=== PATIENT | female | born 1975 | race African-American/Black ===

== ENCOUNTER 2021-07-05 22:06 | Inpatient (IN) | payer BC ==
--- OUTSIDE RECORDS SUMMARY | 2021-07-05 22:09 | XMS REPORT | Continuity of Care Document ---
:1975 Author Organization [facility] t Address [address] [place] [address] Care Team Providers Name Role Phone KATJA MALLOY Primary Care Physician Unavailable RONDA COURTNEY Attending Clinician Unavailable Celeste Roman MD Attending Clinician Celeste ROMAN Attending Clinician Unavailable Payers Payer Name Policy Type Policy Number Effective Date Expiration Date S terrance [facility] [id number] 2016 00:00:00 Problems Condition Condition Condition Status Onset Resolution Last Treating Co mments Source Name Details Category Date Date Treatment Clinician Date Troponin I Troponin I Disease Active U nivers above above 2-11 [place] range 00 [place] Acute on Acute on Disease Active Unive rs chronic chronic 2-11 ity of diastolic diastolic 00:00: [place] (congestiv (congestiv 00 Me dical e) heart e) heart Branch failure failure Morbid Morbid Disease Active Univers obesity obesity 2-10 [place] of with body with body 00:[place] mass index mass index 00 Me dical of of Branch 40.0-49.9 40.0-49.9 Acute on Acute on Disease Active Unive rs chronic chronic 2-10 ity of combined combined 00:00: [place] systolic systolic 00 Medica l and and Branch diastolic diastolic congestive congestive heart heart failure failure Elevated Elevated Disease Active 2018-05 Unive rs LFTs LFTs - ity of 00:00: [place] 00 Medical Branch Bilious Bilious Disease Active 2018-05 Univers vomiting vomiting - ity of with with 00:00: [place] nausea nausea 00 Medical Branch Other Other Disease Active 2018-05 Univers constipati constipati 05-10 it y of on on 00:00: [place] 00 [facility] Branch Abnormal Abnormal Disease Active 2018-[address] of the CT of the 05-10 ity of abdomen abdomen 00:00: [place] 00 Medical Branch Hepatomega Hepatomega Disease Active 2018-05 U nivers ly ly 05-10 ity of 00:00: [place] 00 Medical Branch 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 surgery surgery Branch Diabetes Diabetes Disease Active Unive rs mellitus mellitus 05-10 ity of 00:00: [place] 00 [facility] HTN HTN Disease Active Univers (hypertens (hypertens it y of ion) ion) [facility] Allergies, Adverse Reactions, Alerts Allergy Allergy Status Severity Reaction(s) Onset Inactive Treating Comm ents Source Name Type Date Date Clinician NO KNOWN Drug Active Univers ALLERGIE Class ity of S [facility] Social History Social Habit Start Date Stop Date Quantity Comments Source Exposure to Not sure [facility] SARS-CoV-2 [facility] [place] [facility] (event) [place] Alcohol intake 2021-05-27 2021-05-27 Ex-drinker University of 00:00:00 00:00:00 (finding) [facility] Tobacco use and 2019-02-09 2019-02-09 Never used Universit y of exposure 00:00:00 00:00:00 [facility] History of 2019-02-07 Smoker University of tobacco use 00:00:00 [facility] Sex [birth year] Universit y of 00:00:00 00:00:00 [facility] Smoking Status Start Date Stop Date Source Former smoker 2019-02-09 00:00:00 2019-02-09 00:00:00 Universi ty of [facility] Medications Ordered Filled Start Stop Current Ordering Indication Dosage Frequency Signature Comments Components Source Medication Medication Date Date Medication? Clinician (SIG) Name Name magnesium 2020-05 Yes [id number] 400mg Take 400 Univers oxide 400 0-07 mg by ity of mg 00:00: mouth at [place] magnesium 00 bedtime. Medica l Tab Branch magnesium 2020-05 Yes [id number] 400mg Take 400 Univers oxide 400 0-07 mg by ity of mg 00:00: mouth at [place] magnesium 00 bedtime. Medica l Tab Branch spironolact 2020-05 Yes [id number] 12.5mg Take 0.5 Univers one 25 mg 0-05 9100 tablets by ity of tablet 00:00: mouth [place] 00 daily. Medical Branch atorvastati 2020-05 Yes [id number] 40mg Take 1 Univers n 40 mg 0-05 tablet by ity of tablet 00:00: mouth at [place] 00 bedtime. Medical Branch enalapril 2020-05 Yes [id number] TAKE 1 Univers 2.5 mg 0-05 9100 TABLET BY ity of tablet 00:00: MOUTH [place] 00 EVERY DAY Medical Branch calcitrioL 2020-05 Yes [id number] .5ug Take 1 Univers 0.5 mcg 0-05 capsule by ity of capsule 00:00: mouth [place] 00 daily. Medical Branch bumetanide 2020-05 Yes [id number] 1mg Take 0.5 Univers 2 mg tablet 0-05 9100 tablets by it y of 00:00: mouth 2 [place] 00 (two) Medical times Branch daily. dapaglifloz 2020-05 Yes [id number] 10mg Take 1 Univers in 0-05 tablet by ity of (FARXIGA) 00:00: mouth [place] 10 mg 00 daily. Medical tablet Branch insulin NPH 2020-05 Yes [id number] 15U inject 15 Univers and regular 0-05 Units ity of human 70-30 00:00: [place] (NOVOLIN 00 skin every Medic al 70/30 U-100 morning Branc h INSULIN) and 100 unit/mL evening. (70-30) injection metformin 2020-05 Yes [id number] 1000mg Take 2 Univers ER 500 mg 0-05 tablets by ity of 24 hr 00:00: mouth 2 [place] tablet 00 (two) Medical times Branch daily. semaglutide 2020-05 Yes [id number] .5mg inject 0.5 Univers (OZEMPIC) 0-05 mg under ity of 0.25 mg or 00:00: the skin [place] 0.5 mg(2 00 weekly. Medical mg/1.5 mL) Branch PnIj spironolact 2020-05 Yes [id number] 12.5mg Take 0.5 Univers one 25 mg 0-05 9100 tablets by ity of tablet 00:00: mouth [place] 00 daily. Medical Branch atorvastati 2020-05 Yes [id number] 40mg Take 1 Univers n 40 mg 0-05 tablet by ity of tablet 00:00: mouth at [place] 00 bedtime. Medical Branch enalapril 2020-05 Yes [id number] TAKE 1 Univers 2.5 mg 0-05 9100 TABLET BY ity of tablet 00:00: MOUTH [place] 00 EVERY DAY Medical Branch calcitrioL 2020-05 Yes [id number] .5ug Take 1 Univers 0.5 mcg 0-05 capsule by ity of capsule 00:00: mouth [place] 00 daily. Medical Branch bumetanide 2020-05 Yes [id number] 1mg Take 0.5 Univers 2 mg tablet 0-05 9100 tablets by it y of 00:00: mouth 2 [place] 00 (two) Medical times Branch daily. dapaglifloz 2020-05 Yes [id number] 10mg Take 1 Univers in 0-05 tablet by ity of (FARXIGA) 00:00: mouth [place] 10 mg 00 daily. Medical tablet Branch insulin NPH 2020-05 Yes [id number] 15U inject 15 Univers and regular 0-05 Units ity of human 70-30 00:00: [place] (NOVOLIN 00 skin every Medic al 70/30 U-100 morning Branc h INSULIN) and 100 unit/mL evening. (70-30) injection metformin 2020-05 Yes [id number] 1000mg Take 2 Univers ER 500 mg 0-05 tablets by ity of 24 hr 00:00: mouth 2 [place] tablet 00 (two) Medical times Branch daily. semaglutide 2020-05 Yes [id number] .5mg inject 0.5 Univers (OZEMPIC) 0-05 mg under ity of 0.25 mg or 00:00: the skin [place] 0.5 mg(2 00 weekly. Medical mg/1.5 mL) Branch PnIj metoprolol Yes [id number] 25mg Take 1 Univers succinate 3-04 tablet by ity o f XL 25 mg 24 00:00: mouth 2 [place] hr tablet 00 (two) Medical times Branch daily. metoprolol Yes [id number] 25mg Take 1 Univers succinate 3-04 tablet by ity o f XL 25 mg 24 00:00: mouth 2 [place] hr tablet 00 (two) Medical times Branch daily. 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 Dx: Medic al PEN NEEDLE) E 11.69. Bran ch 31 gauge x Please 16" Ndle dispense the pen needles approved by Insurance. Insulin 2020-0 Yes Use as Univers [place], 6-23 directed ity of Disposable, 00:00: once a [place] (ADVOCATE week. Dx: Medic al PEN NEEDLE) E 11.69. Bran ch 31 gauge x Please 16" Ndle dispense the pen needles approved by Insurance. aspirin 81 2020-0 Yes [id number] 81mg Take 1 Univers mg chewable 5-06 tablet by ity of tablet 00:00: mouth [place] 00 daily with Medical breakfast. Branch aspirin 81 2020-0 Yes [id number] 81mg Take 1 Univers mg chewable 5-06 tablet by ity of tablet 00:00: mouth [place] 00 daily with Medical breakfast. Branch blood sugar 2020-0 Yes [id number] Use as Univers diagnostic 2-27 directed ity o f (ADVANCED 00:00: [place] GLUC METER 00 Medical TEST STRIP) Branch strip blood sugar 2019-0 Yes [id number] Use as Univers diagnostic 2-27 directed ity o f (ADVANCED 00:00: [place] GLUC METER 00 Medical TEST STRIP) Branch strip nystatin 2020-0 Yes [id number] Apply to Univers 100,000 1-15 area(s) 2 ity of unit/gram 00:00: (two) [place] powder 00 times Medical daily. Branch nystatin 2020-0 Yes [id number] Apply to Univers 100,000 1-15 area(s) 2 ity of unit/gram 00:00: (two) [place] powder 00 times Medical daily. Branch PROAIR HFA 2019-0 Yes [id number] INHALE 2 Univers 90 1-03 PUFFS ity of mcg/actuati 00:00: EVERY 6 [place] on inhaler 00 HOURS Medic al NEEDED FOR Branch WHEEZING AND SHORTNESS OF BREATH PROAIR HFA 2020-0 Yes [id number] INHALE 2 Univers 90 1-03 PUFFS ity of mcg/actuati 00:00: EVERY 6 [place] on inhaler 00 HOURS Medic al NEEDED FOR Branch WHEEZING AND SHORTNESS OF BREATH Polyethylen 2019- Yes [id number] 1{packe Take 1 Univers e Glycol 0-03 t} Packet by ity of 3350 00:00: mouth [place] (MIRALAX) 00 daily. Medical 17 gram Branch powder Polyethylen 2018- Yes [id number] 1{packe Take 1 Univers e Glycol 0-03 t} Packet by ity of 3350 00:00: mouth [place] (MIRALAX) 00 daily. Medical 17 gram Branch powder Immunizations Ordered Filled Immunization Date Status Comments [facility] e Immunization Name Name Influenza Virus 2021-05-27 Completed Universit y of Vaccine Quad IM, 00:00:00 [place] Me dical Preserv and ABX Branch Free 6 MO-64 YRS Influenza Virus 2021-05-27 Completed Universit y of Vaccine Quad IM, 00:00:00 [place] Me dical Preserv and ABX Branch Free 6 MO-64 YRS SARS-COV-2 COVID-19 2021-02-11 Completed Unive rsity of PFIZER VACCINE 00:00:00 [facility] SARS-COV-2 COVID-19 2021-02-11 Completed Unive rsity of PFIZER VACCINE 00:00:00 [facility] Branch Pneumococcal 13 2020-07-11 Completed Universit y of Conjugate, PCV13 00:00:00 [facility] dical (Prevnar 13) [place] Influenza Virus 2020-07-11 Completed Universit y of Vaccine Quad .5 mL 00:00:00 [facility] 6+ MO Branch Pneumococcal 13 2020-07-11 Completed Universit y of Conjugate, PCV13 00:00:00 [facility] dical (Prevnar 13) [place] Influenza Virus 2020-07-11 Completed Universit y of Vaccine Quad .5 mL 00:00:00 [facility] 6+ MO Branch SARS-COV-2 COVID-19 2020-06-10 Completed Unive rsity of PFIZER VACCINE 00:00:00 [facility] SARS-COV-2 COVID-19 2020-06-10 Completed Unive rsity of PFIZER VACCINE 00:00:00 [facility] SARS-COV-2 COVID-19 2020-05-20 Completed Unive rsity of PFIZER VACCINE 00:00:00 [facility] SARS-COV-2 COVID-19 2020-05-20 Completed Unive rsity of PFIZER VACCINE 00:00:00 [facility] Influenza Virus 2019-07-10 Completed Universit y of Vaccine Quad .5 mL 00:00:00 [facility] 6+ MO Branch Pneumococcal 13 2019-07-10 Completed Universit y of Conjugate, PCV13 00:00:00 [facility] dical (Prevnar 13) [place] Influenza Virus 2019-07-10 Completed Universit y of Vaccine Quad .5 mL 00:00:00 [facility] 6+ MO Branch Pneumococcal 13 2019-07-10 Completed Universit y of Conjugate, PCV13 00:00:00 [facility] dical (Prevnar 13) [place] Vital Signs Vital Name Observation Time Observation Value Comments Source Systolic blood 2021-05-27 15:19:00 131 mm[Hg] Univer sity of pressure [facility] Diastolic blood 2021-05-27 15:19:00 83 mm[Hg] Unive rsity of pressure [facility] Heart rate 2021-05-27 15:19:00 82 /min [facility] Body temperature 2021-05-27 14:40:00 36.56 Duyen [facility] Res[facility] 2021-05-27 14:40:00 18 /min [facility] Body height 2021-05-27 14:40:00 167.6 cm [facility] Body weight 2021-05-27 14:40:00 125.193 kg [facility] BMI 2021-05-27 14:40:00 44.55 kg/m2 [facility] Procedures Procedure Date / Time Performed Performing Clinician Sourc e FLU VACC ([id number]), 2021-05-27 14:57:50 Heidi Roman [facility] 2-64 YRS, .5ML, IM, Medical Bran ch QUAD (FLUCELVAX) Encounters Start End Encounter Admission Attending Care Care Encounter Source Date/Time Date/Time Type Type Clinicians Facility Department ID 2021-07-07 2021-07-07 Outpatient [facility] [id number] Univers 10:30:00 10:30:00 [id number] [facility] 2021-07-07 2021-07-07 Outpatient [facility] [id number] Univers 10:30:00 10:30:00 [facility] 2021-05-27 2021-05-27 [facility] [id number] Univers 08:30:00 09:16:00 Visit Heidi HAYWOOD [id number] [facility] [id number] [place] long PROFESSIO [phone] Nh dical NAL 134 [facility] 2021-05-27 2021-05-27 [id number] Univers 08:30:00 09:16:00 HEIDI chavira [facility] Results This patient has no known results.
[2021-07-05 23:17] LABS: Absolute Lymphocytes (CBC) 4.2 K/uL (0.7-4.9); Hematocrit 36.7 % (36.0-45.0); Lymphocytes % 23.4 % (15.3-44.8); RBC Red Blood Cell Count 4.25 M/uL (3.86-4.86)
[2021-07-05] MEDS ORDERED: FAMOTIDINE 20 MG/2 ML VIAL IV ONE (23:19)
[2021-07-05] MEDS ORDERED: NA CHLORIDE 0.9% 1,000 ML ONE (23:19)
[2021-07-05 23:23] LABS: Protime INR 1.03
[2021-07-05 23:53] LABS: SARS-COV-2 RT PCR NEGATIVE (NEGATIVE)
[2021-07-05 23:55] LABS: ALT/SGPT 17 U/L (12-78); AST/SGOT 9 U/L (15-37); Albumin 3.4 g/dL (3.4-5.0); Alkaline Phosphatase 66 U/L (45-117); BUN Blood Urea Nitrogen 16 mg/dL (7-18); Bicarbonate 25 mmol/L (21-32); Bilirubin Direct < 0.1 mg/dL (0-0.2); Bilirubin Total 0.2 mg/dL (0.2-1.0); Glucose Level 202 mg/dL (74-106); Lipase 71 U/L (73-393); Magnesium 1.9 mg/dL (1.8-2.4); NT PRO-BNP 1380 pg/mL (<125); Potassium 3.4 mmol/L (3.5-5.1); Sodium Level 138 mmol/L (136-145)
[2021-07-06] MEDS ORDERED: PROMETHAZINE INJ 25 MG/ML AMP ONE ×2 (00:16→08:52)
[2021-07-06] MEDS ORDERED: CEFTRIAXONE 1000 MG/VIAL ONE (02:52)
--- NOTE | 2021-07-06 03:33 | EDPHYS ---
Physician Documentation [facility] Name: Sharda Mckenzie Age: 46 yrs Sex: Female : 1975 Arrival Date: 07/05/2021 Time: 22:29 Bed 13 Private MD: ED Physician Cam Graff HPI: 07/05 23:25 This 46 yrs old Black Female presents to ER via Unassigned with complaints of [place]. mh7 Vomiting. 23:25 The patient presents to the emergency department with nausea, that is moderate, mh7 vomiting, that is intermittent, described as undigested food, diarrhea, that is intermittent. Onset: The symptoms/episode began/occurred just prior to arrival, today. Possible causes: bad food exposure, possibly bad restaurant food. The symptoms are aggravated by nothing. The symptoms are alleviated by nothing. Associated signs and symptoms: Pertinent negatives: abdominal pain, anorexia, belching, constipation, dysuria, fever, flatulence, GI bleeding, hematuria, vaginal discharge. Severity of symptoms: At their worst the symptoms were moderate today, in the emergency department the symptoms are unchanged. 23:25 Reports symptoms starting within a couple hours of eating food from multiple [facility] restaurants.. 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 - Social history:: Smoking status: unknown. ROS: 23:25 Constitutional: Negative for fever, chills, and weight loss, Eyes: Negative for injury, mh7 pain, redness, and discharge, ENT: Negative for injury, pain, and discharge, Neck: Negative for injury, pain, and swelling, Cardiovascular: Negative for chest pain, palpitations, and edema, Respiratory: Negative for shortness of breath, cough, wheezing, and pleuritic chest pain, Back: Negative for injury and pain, : Negative for injury, bleeding, discharge, and swelling, MS/Extremity: Negative for injury and deformity, Skin: Negative for injury, rash, and discoloration, Neuro: Negative for headache, weakness, numbness, tingling, and seizure, Psych: Negative for depression, anxiety, suicide ideation, homicidal ideation, and hallucinations, Allergy/Immunology: Negative for hives, rash, and allergies, Endocrine: Negative for neck swelling, polydipsia, polyuria, polyphagia, and marked weight changes, Hematologic/Lymphatic: Negative for swollen nodes, abnormal bleeding, and unusual bruising. Exam: 23:25 Head/Face: Normocephalic, atraumatic. Eyes: Pupils equal round and reactive to light, mh7 extra-ocular motions intact. Lids and lashes normal. Conjunctiva and sclera are non-icteric and not injected. Cornea within normal limits. Periorbital areas with no swelling, redness, or edema. Neck: Trachea midline, no thyromegaly or masses palpated, and no cervical lymphadenopathy. Supple, full range of motion without nuchal rigidity, or vertebral point tenderness. No Meningismus. Chest/axilla: Normal chest wall appearance and motion. Nontender with no deformity. No lesions are appreciated. Respiratory: Lungs have equal breath sounds bilaterally, clear to auscultation and percussion. No rales, rhonchi or wheezes noted. No increased work of breathing, no retractions or nasal flaring. Abdomen/GI: Soft, non-tender, with normal bowel sounds. No distension or tympany. No guarding or rebound. No evidence of tenderness throughout. Back: No spinal tenderness. No costovertebral tenderness. Full range of motion. Skin: Warm, dry with normal turgor. Normal color with no rashes, no lesions, and no evidence of cellulitis. MS/ Extremity: Pulses equal, no cyanosis. Neurovascular intact. Full, normal range of motion. Neuro: Awake and alert, GCS 15, oriented to person, place, time, and situation. Cranial nerves II-XII grossly intact. Motor strength 5/5 in all extremities. Sensory grossly intact. Cerebellar exam normal. Normal gait. Psych: Awake, alert, with orientation to person, place and time. Behavior, mood, and affect are within normal limits. 23:25 Constitutional: The patient appears in no acute distress, alert, awake, uncomfortable. 23:25 Cardiovascular: Regular rate and rhythm with a normal S1 and S2. No gallops, murmurs, mh7 or rubs. Normal PMI, no JVD. No pulse deficits. Vital Signs: 23:46 BP 161 / 94 LA Supine (auto/lg); Pulse 90 MON; Resp 18 S; Temp 97.8(O); Pulse Ox 93% on sv1 R/A; Weight 127.01 kg (R); Height 5 ft. 6 in. (167.64 cm); 07/06 00:06 BP 165 / 99 RA Supine (auto/lg); Pulse 88 MON; Resp 18; Pulse Ox 97% on R/A; sv1 01:00 BP 169 / 100 RA Supine (auto/lg); Pulse 93 MON; Resp 18 S; Pulse Ox 93% on R/A; sv1 01:30 BP 140 / 76 RA Supine (auto/reg); Pulse 80 MON; Resp 16 S; Pulse Ox 96% on R/A; sv1 03:10 BP 128 / 73 RA Supine (auto/lg); Pulse 87 MON; Resp 18; Pulse Ox 98% on R/A; sv1 04:30 BP 105 / 69 RA Supine (auto/lg); Pulse 85 MON; Resp 18 S; Pulse Ox 95% on R/A; Pain sv1 0/10; 05:30 BP 98 / 58 RA Supine (auto/lg); Pulse 85 MON; Resp 16 S; Pulse Ox 96% on R/A; sv1 06:30 BP 125 / 75 RA Supine (auto/lg); Pulse 85 MON; Resp 16; Pulse Ox 98% on R/A; sv1 08:00 BP 124 / 72; Pulse 75; Resp 15; Pulse Ox 98% ; Pain 0/10; eo2 07/05 23:46 Body Mass Index 45.19 (127.01 kg, 167.64 cm) sv1 MDM: 03:29 Differential diagnosis: Nonspecific abd pain, gastritis, cholecystitis, pancreatitis, mh7 appendicitis, diverticulitis, viral gastroenteritis, gastroenteritis. Data reviewed: vital signs, nurses notes, EMS record, lab test result(s), cardiac enzymes, CBC, electrolytes, EKG, radiologic studies, CT scan, plain films. Data interpreted: Pulse oximetry: on room air is 97 %. Interpretation: normal. Counseling: I had a detailed discussion with the patient and/or guardian regarding: the historical points, exam findings, and any diagnostic results supporting the discharge/admit diagnosis, the presence of at least one elevated blood pressure reading (>120/80) during this emergency department visit, lab results, radiology results, the need for further work-up and treatment in the hospital. Response to treatment: the patient's symptoms have mildly improved after treatment. 03:33 Patient medically screened. 07/05 22:33 Order name: Basic Metabolic Panel; Complete Time: 23:59 07/05 22:33 Order name: CBC with Diff; Complete Time: 23:37 [facility] 07/05 22:33 Order name: LFT's; Complete Time: 23:59 [facility] 07/05 22:33 Order name: Magnesium; Complete Time: 23:59 07/05 22:33 Order name: NT PRO-BNP; Complete Time: 23:59 [facility] 07/05 22:33 Order name: PT-INR; Complete Time: 23:37 [facility] 07/05 22:33 Order name: Troponin HS; Complete Time: 23:59 [facility] 07/05 22:33 Order name: Lipase; Complete Time: 23:59 [facility] 07/05 22:35 Order name: COVID-19/FLU A+B (Document "Date of Onset" if Symptomatic); Complete Time: [facility] 23:59 07/05 23:50 Order name: Glucose, Ancillary Testing; Complete Time: 23:59 [facility] 07/06 01:01 Order name: Test, Serum; Complete Time: 01:56 07/06 03:33 Order name: ETOH Level; Complete Time: 05:57 07/06 03:33 Order name: UDS [facility] 07/06 07:36 Order name: Urine Dipstick-Ancillary [facility] 07/05 22:33 Order name: XRAY Chest (1 view) [facility] 07/05 22:33 Order name: EKG; Complete Time: 22:34 07/05 22:33 Order name: Cardiac monitoring; Complete Time: 08:19 [facility] 07/05 22:33 Order name: EKG - Nurse/Tech; Complete Time: 08:19 [facility] 07/05 22:33 Order name: IV Saline Lock; Complete Time: 08:19 [facility] 07/05 22:33 Order name: Labs collected and sent; Complete Time: 08:19 [facility] 07/05 22:33 Order name: O2 Per Protocol; Complete Time: 08:19 [facility] 07/06 00:01 Order name: CT Chest For PE Angio [facility] 07/06 00:01 Order name: CT Abd/Pelvis - IV Contrast Only [facility] 07/05 22:33 Order name: O2 Sat Monitoring; Complete Time: 08:19 [facility] 07/05 22:33 Order name: Urine Dipstick-Ancillary (obtain specimen); Complete Time: 08:19 [facility] 07/05 22:33 Order name: Urine Test (obtain specimen); Complete Time: 08:19 [facility] Administered Medications: 07/05 23:57 Drug: NS 0.9% 500 ml Route: IV; Rate: bolus; Site: left antecubital; sv1 07/06 08:18 Follow up: Response: No adverse reaction; IV Status: Completed infusion; IV Intake: eo2 500ml 07/05 23:59 Drug: Zofran (Ondansetron) 4 mg Route: IVP; Site: left antecubital; sv1 07/06 00:18 Follow up: Response: No adverse reaction; Nausea unchanged sv1 07/05 23:59 Drug: Pepcid (famotidine) 20 mg Route: IVP; Site: left antecubital; sv1 07/06 00:17 Follow up: Response: No adverse reaction sv1 00:17 Drug: Phenergan (promethazine) 12.5 mg Route: IVP; Site: left antecubital; sv1 01:34 Follow up: Response: No adverse reaction; Nausea is decreased sv1 03:22 Follow up: Response: Nausea is decreased sv1 02:55 Drug: Rocephin (cefTRIAXone) 1 grams Route: IV; Rate: per protocol; Site: right sv1 antecubital; 03:19 Follow up: Response: No adverse reaction sv1 08:20 Follow up: IV Status: Completed infusion; IV Intake: 10ml eo2 03:45 Drug: Zofran (Ondansetron) 4 mg Route: IVP; Site: left antecubital; sv1 08:18 Follow up: Response: No adverse reaction eo2 08:52 Drug: Promethazine 12.5 mg Route: IVP; Site: left antecubital; eo2 Point of Care Testing: Blood Glucose: 07/05 23:46 Blood Glucose: 178 mg/dL; Test Strip: Lot #: [id number]; Expiration: 12/15/2022; sv1 Ranges: Critical Glucose Levels:Adult <50 mg/dl or >400 mg/dl <40 mg/dl or >180 mg/dl Disposition Summary: 07/06/21 03:33 Hospitalization Ordered Hospitalization Status: Inpatient Admission [facility] Condition: Stable [facility] Problem: new mh7 Symptoms: have improved 7 Bed/Room Type: Standard [facility] Provider: Fox Aguiar(07/06/21 03:34) [facility] Room Assignment: [facility](07/06/21 06:25) Diagnosis - Gastroenteritis [facility] - Nausea with vomiting, unspecified - Intractable [facility] Forms: - Medication Reconciliation Form 7 - SBAR form [facility] Signatures: Dispatcher [employer] EDMS Simona Gonzales RN RN Brittney Piña RN RN Cam Graff MD MD 7 Imtiaz Parra RN RN sv1 Nesha Zavala RN RN eo2 Corrections: (The following items were deleted from the chart) 07/06 03:34 03:33 Isma Cazares [place] [id number] 06:25 03:33 [facility]
--- NOTE | 2021-07-06 03:33 | ER ---
Nurse's Notes [facility] Name: Sharda Mckenzie Age: 46 yrs Sex: Female : 1975 Arrival Date: 07/05/2021 Time: 22:29 Bed 13 Private MD: Diagnosis: Gastroenteritis;Nausea with vomiting, unspecified-Intractable Presentation: 07/06 00:09 Chief complaint: Patient states: nausea, vomiting. Coronavirus screen: Client denies sv1 travel out of the [place] in the last 14 days. Ebola Screen: No symptoms or risks identified at this time. Initial Sepsis Screen: Does the patient meet any 2 criteria? No. Patient's initial sepsis screen is negative. Does the patient have a suspected source of infection? No. Patient's initial sepsis screen is negative. Risk Assessment: Do you want to hurt yourself or someone else? Patient reports no desire to harm self or others. Onset of symptoms was July 04, 2021. 00:09 Acuity: MAGALY 3 sv1 00:09 Method Of Arrival: EMS: [facility] Triage Assessment: 07/05 23:39 General: Appears uncomfortable, ill, obese, well groomed. Pain: Complains of pain in sv1 abdomen Pain does not radiate. 23:52 General: Behavior is agitated, crying, restless. 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 - Social history:: Smoking status: unknown. Screenin:57 Abuse screen: Denies threats or abuse. Nutritional screening: No deficits noted. sv1 Tuberculosis screening: No symptoms or risk factors identified. Fall Risk No fall in past 12 months (0 pts). No secondary diagnosis (0 pts). IV access (20 points). Ambulatory Aid- None/Bed Rest/Nurse Assist (0 pts). Gait- Normal/Bed Rest/Wheelchair (0 pts) Mental Status- Oriented to own ability (0 pts). Assessment: 07/06 00:07 Reassessment: The patient continues to be nauseated and is actively vomiting. sv1 07:21 Reassessment: 1st attempt to call report, receiving RN to call back. eo2 07:45 Reassessment: 2nd attempt to call report, receiving RN to call back. eo2 Vital Signs: 07/05 23:46 BP 161 / 94 LA Supine (auto/lg); Pulse 90 MON; Resp 18 S; Temp 97.8(O); Pulse Ox 93% on sv1 R/A; Weight 127.01 kg (R); Height 5 ft. 6 in. (167.64 cm); 07/06 00:06 BP 165 / 99 RA Supine (auto/lg); Pulse 88 MON; Resp 18; Pulse Ox 97% on R/A; sv1 01:00 BP 169 / 100 RA Supine (auto/lg); Pulse 93 MON; Resp 18 S; Pulse Ox 93% on R/A; sv1 01:30 BP 140 / 76 RA Supine (auto/reg); Pulse 80 MON; Resp 16 S; Pulse Ox 96% on R/A; sv1 03:10 BP 128 / 73 RA Supine (auto/lg); Pulse 87 MON; Resp 18; Pulse Ox 98% on R/A; sv1 04:30 BP 105 / 69 RA Supine (auto/lg); Pulse 85 MON; Resp 18 S; Pulse Ox 95% on R/A; Pain sv1 0/10; 05:30 BP 98 / 58 RA Supine (auto/lg); Pulse 85 MON; Resp 16 S; Pulse Ox 96% on R/A; sv1 06:30 BP 125 / 75 RA Supine (auto/lg); Pulse 85 MON; Resp 16; Pulse Ox 98% on R/A; sv1 08:00 BP 124 / 72; Pulse 75; Resp 15; Pulse Ox 98% ; Pain 0/10; eo2 07/05 23:46 Body Mass Index 45.19 (127.01 kg, 167.64 cm) sv1 ED Course: 07/05 22:29 Patient arrived in ED. mw2 22:32 Cam Graff MD is Attending Physician. mh7 22:46 Imtiaz Parra, PORFIRIO is Primary Nurse. sv1 23:46 Arm band placed on Patient placed in an exam room, on a stretcher. sv1 23:50 XRAY Chest (1 view) In Process Unspecified. EDMS 23:57 Patient has correct armband on for positive identification. Bed in low position. Call sv1 light in reach. Side rails up X2. Adult w/ patient. 23:57 No provider procedures requiring assistance completed. Inserted saline lock: 20 gauge sv1 in left antecubital area, using aseptic technique. 07/06 00:10 Triage completed. sv1 01:34 Test, Serum Sent. sv1 02:27 CT Chest For PE Angio In Process Unspecified. EDMS 02:27 CT Abd/Pelvis - IV Contrast Only In Process Unspecified. EDMS 03:31 Isma Cazares is Hospitalizing Provider. mh7 03:34 Fox Aguiar MD is Hospitalizing Provider. mh7 08:11 Report given to Misa MONROY. eo2 08:11 Patient admitted, IV remains in place. eo2 Administered Medications: 07/05 23:57 Drug: NS 0.9% 500 ml Route: IV; Rate: bolus; Site: left antecubital; sv1 07/06 08:18 Follow up: Response: No adverse reaction; IV Status: Completed infusion; IV Intake: eo2 500ml 07/05 23:59 Drug: Zofran (Ondansetron) 4 mg Route: IVP; Site: left antecubital; sv1 07/06 00:18 Follow up: Response: No adverse reaction; Nausea unchanged sv1 07/05 23:59 Drug: Pepcid (famotidine) 20 mg Route: IVP; Site: left antecubital; sv1 07/06 00:17 Follow up: Response: No adverse reaction sv1 00:17 Drug: Phenergan (promethazine) 12.5 mg Route: IVP; Site: left antecubital; sv1 01:34 Follow up: Response: No adverse reaction; Nausea is decreased sv1 03:22 Follow up: Response: Nausea is decreased sv1 02:55 Drug: Rocephin (cefTRIAXone) 1 grams Route: IV; Rate: per protocol; Site: right sv1 antecubital; 03:19 Follow up: Response: No adverse reaction sv1 08:20 Follow up: IV Status: Completed infusion; IV Intake: 10ml eo2 03:45 Drug: Zofran (Ondansetron) 4 mg Route: IVP; Site: left antecubital; sv1 08:18 Follow up: Response: No adverse reaction eo2 08:52 Drug: Promethazine 12.5 mg Route: IVP; Site: left antecubital; eo2 Point of Care Testing: Blood Glucose: 07/05 23:46 Blood Glucose: 178 mg/dL; Test Strip: Lot #: [id number]; Expiration: 12/15/2022; sv1 Ranges: Intake: 07/06 08:18 IV: 500ml; Total: 500ml. eo2 08:20 IV: 10ml; Total: 510ml. eo2 Outcome: 03:33 Decision to Hospitalize by Provider. 7 08:11 Admitted to Med/surg accompanied by nurse. eo2 08:11 Condition: stable 08:11 Instructed on the need for admit. 08:58 Patient left the ED. eb Signatures: Dispatcher [employer] EDMS Yolette Barragan mw2 Laquita Day Maurice, MD MD 7 Imtiaz Parra RN RN sv1 Nesha Zavala RN RN eo2
[2021-07-06] MEDS ORDERED: ONDANSETRON 4 MG/2 ML VIAL ONE (03:43)
--- NOTE | 2021-07-06 03:47 | P.HP ---
Certification for Inpatient Patient admitted to: Inpatient With expected LOS: <2 Midnights Patient will require the following post-hospital care: None Practitioner: I am a practitioner with admitting privileges, knowledge of patient current condition, hospital course, and medical plan of care. Services: Services provided to patient in accordance with Admission requirements found in Title 42 Section 412.3 of the Code of Federal Regulations <Vanessa Pena - Last Filed: 07/06/21 03:56> Patient History Date of Service: 07/06/21 Reason for admission: Intractable N/V History of Present Illness: Is a 46-year-old black female with hypertension and type 2 diabetes insulin- dependent who presented to the ED tonight with complaints of nausea and vomiting after dinner. In the ED labs remarkable for WBC 17.8, BNP 1380, hCG negative, Covid negative, toxicology negative, CT abdomen negative. Per ED staff, patient urinated and vomited all over the floor. Urinalysis pending. She was given Zofran and promethazine which initially resolved her vomiting but recurred. Upon my assessment patient is sleepy but arousable. She is not very cooperative in answering my questions. She will be admitted for further evaluation of intractable nausea and vomiting and elevated white blood cell count. Home medications list reviewed: No (NA) - Past Medical/Surgical History Diabetic: Yes -: HTN Past Surgical History: Patient denies surgical history Psychosocial/ Personal History: Patient lives at home with her daughter. - Family History Family History: Reviewed- Non-Contributory - Social History Smoking Status: Never smoker Alcohol use: Yes CD- Drugs: No Caffeine use: Yes Place of Residence: Home <Joanna Penaia - Last Filed: 07/06/21 03:56> Date of Service: 07/06/21 <Fox Aguiar - Last Filed: 07/06/21 23:45> Review of Systems Gastrointestinal: Nausea, Vomiting <JeanVanessa - Last Filed: 07/06/21 03:56> Physical Examination - Physical Exam General: Alert, In no apparent distress, Obese HEENT: Atraumatic, PERRLA, Mucous membr. moist/pink, EOMI, Sclerae nonicteric Neck: Supple, 2+ carotid pulse no bruit, No LAD, Without JVD or thyroid abnormality Respiratory: Diminished Cardiovascular: Regular rate/rhythm, Normal S1 S2 Gastrointestinal: Normal bowel sounds, No tenderness Musculoskeletal: No tenderness Integumentary: No rashes Neurological: Normal speech, Normal strength at 5/5 x4 extr, Normal tone, Normal affect - Studies Laboratory Data (last 24 hrs) 07/05/21 23:05: PT 11.8, INR 1.03 07/05/21 23:05: WBC 17.80 H, Hgb 12.1, Hct 36.7, Plt Count 482 H 07/05/21 23:05: Sodium 138, Potassium 3.4 L, BUN 16, Creatinine 1.03, Glucose 202 H, Magnesium 1.9, Total Bilirubin 0.2, AST 9 L, ALT 17, Alkaline Phosphatase 66, Lipase 71 L <Vanessa Pena - Last Filed: 07/06/21 03:56> - Studies Laboratory Data (last 24 hrs) 07/05/21 23:05: Sodium 138, Potassium 3.4 L, BUN 16, Creatinine 1.03, Glucose 202 H, Magnesium 1.9, Total Bilirubin 0.2, AST 9 L, ALT 17, Alkaline Phosphatase 66, Lipase 71 L <Fox Aguiar - Last Filed: 07/06/21 23:45> Assessment and Plan - Problems (Diagnosis) (1) Intractable nausea and vomiting Current Visit: Yes Status: Acute (2) Leukocytosis Current Visit: Yes Status: Acute Qualifiers: Leukocytosis type: unspecified Qualified Code(s): D72.829 - Elevated white blood cell count, unspecified (3) HTN (hypertension) Current Visit: Yes Status: Chronic Qualifiers: Hypertension type: primary hypertension Qualified Code(s): I10 - Essential (primary) hypertension (4) Morbid obesity Current Visit: Yes Status: Chronic - Plan -IV fluids at 100cc/hr and promethazine prn nausea -achs accu checks and mild sliding scale insulin -clear liquid diet -will continue home medications -repeat CBC and trend WBC count. -urinalysis pending DVT PPx: Lovenox Code: Full Discharge Plan: Home Plan to discharge in: 48 Hours - Advance Directives Does patient have a Living Will: No Does patient have a Durable POA for Healthcare: No - Code Status/Comfort Care Code Status Assessed: Yes (Full) Critical Care: No Time Spent Managing Pts Care (In Minutes): 70 <Vanessa Pena - Last Filed: 07/06/21 03:56> Date of Service: 07/06/21 Subjective: HPI as mentioned above; patient with weakness and some difficulty with speech. Stroke work-up Physical Examination: Vitals: Afebrile vital signs are stable Physical exam: Cardiovascular: Within normal limits. Lungs: Within normal limits Abdomen: Within normal limits Neuro: Awake, alert, oriented to person place and time Assessment: 1. Vertigo 2. Nausea and vomiting Plan: 1. Continue with current plan of care as mentioned above <Fox Aguiar - Last Filed: 07/06/21 23:45>
[2021-07-06 07:36] LABS: Urine Blood Negative (Negative); Urine Glucose 3+ (Negative); Urine Protein Negative (Negative); Urine Specific Gravity 1.015 (1.005-1.030)
--- NOTE | 2021-07-06 08:46 | RAD REPORT ---
EXAM DESCRIPTION: RAD - Chest Single View - 07/05/2021 11:50 pm CLINICAL HISTORY: CONGESTION COMPARISON: Abdomen Pelvis W Contrast dated 07/06/2021; Chest For Pe Angio dated 07/06/2021 FINDINGS: Lines: None. Lungs: No evidence of edema or pneumonia. Prominence of the pulmonary interstitium. This is likely du e to low lung volumes. Pleural: No significant pleural effusions or pneumothorax. Cardiac: The heart size is within normal limits. Bones: No acute fractures. Other: IMPRESSION: Pulmonary vasculature likely accentuated due to low lung volumes. No definite acute proc ess. Reference subsequent chest CT.
[2021-07-06 09:26] LABS: Barbiturates NEGATIVE (NEGATIVE); Benzodiazepines NEGATIVE (NEGATIVE); Cocaine NEGATIVE (NEGATIVE); METHAMPHETAM NEGATIVE (NEGATIVE); Methadone NEGATIVE (NEGATIVE); Opiates NEGATIVE (NEGATIVE); Phencyclidine NEGATIVE (NEGATIVE); THC Cannibis NEGATIVE (NEGATIVE)
[2021-07-06] MEDS ORDERED: PROMETHAZINE INJ 25 MG/ML AMP IV PRN (09:55)
[2021-07-06] MEDS: INSULIN -REGULAR HUMAN 50 UNIT/0.5 ML ML SQ SCH ×4 (09:55→20:42)
[2021-07-06] MEDS ORDERED: ACETAMINOPHEN 500 MG TAB PO PRN (09:55)
[2021-07-06] MEDS ORDERED: ONDANSETRON 4 MG/2 ML VIAL IV PRN (09:55)
[2021-07-06] MEDS: ENOXAPARIN 40 MG/0.4 ML SQ SCH (11:00)
[2021-07-06 12:15] VITALS: BMI 45.1
[2021-07-06] MEDS: NA CHLORIDE 0.9% 1,000 ML IV SCH ×3 (13:25→23:16)
[2021-07-06 16:29] LABS: Albumin 3.7 g/dL (3.4-5.0); Bilirubin Total 0.6 mg/dL (0.2-1.0); Potassium 3.9 mmol/L (3.5-5.1); Protein, Total 8.9 g/dL (6.4-8.2)
[2021-07-06 16:30] LABS: Magnesium 2.1 mg/dL (1.8-2.4)
[2021-07-06 20:22] LABS: Absolute Lymphocytes (CBC) 1.5 K/uL (0.7-4.9); Hematocrit 38.1 % (36.0-45.0); Lymphocytes % 11.1 % (15.3-44.8); MPV 7.9 fL (7.6-11.3); RBC Red Blood Cell Count 4.39 M/uL (3.86-4.86)
[2021-07-06] MEDS: METOPROLOL XL 25 MG TAB PO SCH (20:40)
[2021-07-06] MEDS: ATORVASTATIN 40 MG TAB PO SCH (20:42)
[2021-07-06] MEDS ORDERED: METFORMIN ER 500 MG TAB PO SCH (21:00)
[2021-07-07 05:54] LABS: Absolute Lymphocytes (CBC) 2.3 K/uL (0.7-4.9); Hematocrit 36.7 % (36.0-45.0); Lymphocytes % 19.3 % (15.3-44.8); MPV 8.2 fL (7.6-11.3); RBC Red Blood Cell Count 4.16 M/uL (3.86-4.86)
[2021-07-07] MEDS: NA CHLORIDE 0.9% 1,000 ML IV SCH (05:55)
[2021-07-07 06:08] LABS: ALT/SGPT 14 U/L (12-78); AST/SGOT 7 U/L (15-37); Alkaline Phosphatase 66 U/L (45-117); BUN Blood Urea Nitrogen 15 mg/dL (7-18); Bicarbonate 26 mmol/L (21-32); Bilirubin Total 0.6 mg/dL (0.2-1.0); Glucose Level 187 mg/dL (74-106); Magnesium 2.2 mg/dL (1.8-2.4); Potassium 3.8 mmol/L (3.5-5.1); Protein, Total 7.4 g/dL (6.4-8.2); Sodium Level 137 mmol/L (136-145)
[2021-07-07] MEDS: INSULIN -REGULAR HUMAN 50 UNIT/0.5 ML ML SQ SCH ×4 (07:30→22:42)
[2021-07-07] MEDS ORDERED: POTASSIUM CL SA 10 MEQ TAB PO ONE (09:00)
--- NOTE | 2021-07-07 09:12 | RAD REPORT ---
EXAM DESCRIPTION: MRI - Brain Wo Cont - 07/07/2021 8:49 am CLINICAL HISTORY: Vertigo/vomiting COMPARISON: No comparisons TECHNIQUE: Sagittal T1-weighted images were obtained along with PD/heavily T2-weighted and T2-FLAIR images. Axial DWI and ADC mapping sequences were also obtained along with coronal heavily T2-weighted images were obtained. FINDINGS: Large right cerebellar hemisphere acute infarct. There is diffusion restriction with low s ignal on ADC. T2/ FLAIR hyperintensity is present . There is edema. Periventricular T2 FLAIR hyperint ensity along the right frontal lobe and near the caudate head likely sequela of a remote infarct. No acute intracranial hemorrhage. No mass effect or midline shift. Flow voids are unremarkable. Mastoid air cells and paranasal sinuses are clear. IMPRESSION: Large acute right cerebellar hemisphere infarct. Small remote right basal ganglia/ward r radiata infarct. Discussed with Dr. Aguiar by Dr. Banerjee at 0905 on 07/07/21
[2021-07-07] MEDS: ASPIRIN EC 81 MG TAB PO SCH (10:00)
[2021-07-07] MEDS: MECLIZINE HCL 12.5 MG TAB PO SCH ×3 (10:00→21:32)
[2021-07-07] MEDS: ENALAPRIL 2.5 MG TAB PO SCH (10:34)
[2021-07-07] MEDS: ENOXAPARIN 40 MG/0.4 ML SQ SCH (10:35)
[2021-07-07] MEDS: CLOPIDOGREL 75 MG TABLET PO SCH (10:36)
[2021-07-07] MEDS: METOPROLOL XL 25 MG TAB PO SCH ×2 (10:36→21:33)
--- NOTE | 2021-07-07 10:54 | RAD REPORT ---
EXAM DESCRIPTION: CT - Chest For Pe Angio - 07/06/2021 6:56 am CLINICAL HISTORY: The patient is 46 years old and is Female; SOB TECHNIQUE: Axial computed tomographic angiography images of the chest with intravenous contrast. S agittal and coronal reformatted images were created and reviewed. This CT exam was performed using one or more of the following dose reduction techniques: automated exposure control, adjustment of t he mA and/or kV according to patient size, and/or use of iterative reconstruction technique. MIP re constructed images were created and reviewed. COMPARISON: No relevant prior studies available. FINDINGS: Limitations: Evaluation limited by suboptimal contrast bolus. Pulmonary arteries: Unremarkable. No pulmonary embolism. Aorta: No acute findings. No thoracic aortic aneurysm. Lungs: Unremarkable. No mass. No consolidation. Pleural space: Unremarkable. No significant effusion. No pneumothorax. Heart: Unremarkable. No cardiomegaly. No significant pericardial effusion. No evidence of RV dysfunction. Bones/joints: No acute fracture. No dislocation. Soft tissues: Unremarkable. Lymph nodes: Unremarkable. No enlarged lymph nodes. * A single impression for all exams can be found at the end of this report EXAM DESCRIPTION: CT Abdomen and Pelvis With Intravenous Contrast CLINICAL HISTORY: The patient is 46 years old and is Female; SOB TECHNIQUE: Axial computed tomography images of the abdomen and pelvis with intravenous contrast. S agittal and coronal reformatted images were created and reviewed. This CT exam was performed using one or more of the following dose reduction techniques: automated exposure control, adjustment of t he mA and/or kV according to patient size, and/or use of iterative reconstruction technique. COMPARISON: No relevant prior studies available. FINDINGS: Lung bases: Unremarkable. No mass. No consolidation. Mediastinum: Small hiatal hernia. ABDOMEN: Liver: Unremarkable. No mass. Gallbladder and bile ducts: Unremarkable. No calcified stones. No ductal dilation. Pancreas: Unremarkable. No mass. No ductal dilation. Spleen: Unremarkable. No splenomegaly. Adrenals: Unremarkable. No mass. Kidneys and ureters: Unremarkable. No solid mass. No hydronephrosis. Stomach and bowel: Unremarkable. No obstruction. No mucosal thickening. PELVIS: Appendix: No findings to suggest acute appendicitis. Bladder: Unremarkable. No mass. Reproductive: Unremarkable as visualized. ABDOMEN and PELVIS: Intraperitoneal space: Unremarkable. No free air. No significant fluid collection. Bones/joints: No acute fracture. No dislocation. Soft tissues: Unremarkable. Vasculature: Unremarkable. No abdominal aortic aneurysm. Lymph nodes: Unremarkable. No enlarged lymph nodes. * A single impression for all exams can be found at the end of this report IMPRESSION: CT Angiography Chest With Intravenous Contrast: No acute finding. No evidence of pulmonary embolism. CT Abdomen and Pelvis With Intravenous Contrast: No acute findings in the abdomen or pelvis. Electronically signed by: López He MD 07/06/2021 3:15 AM BREED TO [employer] PRODUCTION TECHNICIAN Due to temporary technical issues with the PACS/Fluency reporting system, reports are being signed by the in house radiologist without review as a courtesy to ensure prompt reporting. The interpreting r adiologist is fully responsible for the content of the report.
--- NOTE | 2021-07-07 10:55 | RAD REPORT ---
EXAM DESCRIPTION: CT - Abdomen Pelvis W Contrast - 07/06/2021 6:55 am CLINICAL HISTORY: The patient is 46 years old and is Female; SOB TECHNIQUE: Axial computed tomographic angiography images of the chest with intravenous contrast. S agittal and coronal reformatted images were created and reviewed. This CT exam was performed using one or more of the following dose reduction techniques: automated exposure control, adjustment of t he mA and/or kV according to patient size, and/or use of iterative reconstruction technique. MIP re constructed images were created and reviewed. COMPARISON: No relevant prior studies available. FINDINGS: Limitations: Evaluation limited by suboptimal contrast bolus. Pulmonary arteries: Unremarkable. No pulmonary embolism. Aorta: No acute findings. No thoracic aortic aneurysm. Lungs: Unremarkable. No mass. No consolidation. Pleural space: Unremarkable. No significant effusion. No pneumothorax. Heart: Unremarkable. No cardiomegaly. No significant pericardial effusion. No evidence of RV dysfunction. Bones/joints: No acute fracture. No dislocation. Soft tissues: Unremarkable. Lymph nodes: Unremarkable. No enlarged lymph nodes. * A single impression for all exams can be found at the end of this report EXAM DESCRIPTION: CT Abdomen and Pelvis With Intravenous Contrast CLINICAL HISTORY: The patient is 46 years old and is Female; SOB TECHNIQUE: Axial computed tomography images of the abdomen and pelvis with intravenous contrast. S agittal and coronal reformatted images were created and reviewed. This CT exam was performed using one or more of the following dose reduction techniques: automated exposure control, adjustment of t he mA and/or kV according to patient size, and/or use of iterative reconstruction technique. COMPARISON: No relevant prior studies available. FINDINGS: Lung bases: Unremarkable. No mass. No consolidation. Mediastinum: Small hiatal hernia. ABDOMEN: Liver: Unremarkable. No mass. Gallbladder and bile ducts: Unremarkable. No calcified stones. No ductal dilation. Pancreas: Unremarkable. No mass. No ductal dilation. Spleen: Unremarkable. No splenomegaly. Adrenals: Unremarkable. No mass. Kidneys and ureters: Unremarkable. No solid mass. No hydronephrosis. Stomach and bowel: Unremarkable. No obstruction. No mucosal thickening. PELVIS: Appendix: No findings to suggest acute appendicitis. Bladder: Unremarkable. No mass. Reproductive: Unremarkable as visualized. ABDOMEN and PELVIS: Intraperitoneal space: Unremarkable. No free air. No significant fluid collection. Bones/joints: No acute fracture. No dislocation. Soft tissues: Unremarkable. Vasculature: Unremarkable. No abdominal aortic aneurysm. Lymph nodes: Unremarkable. No enlarged lymph nodes. * A single impression for all exams can be found at the end of this report IMPRESSION: CT Angiography Chest With Intravenous Contrast: No acute finding. No evidence of pulmonary embolism. CT Abdomen and Pelvis With Intravenous Contrast: No acute findings in the abdomen or pelvis. Electronically signed by: López He MD 07/06/2021 3:15 AM HOUSE OFFICER Due to temporary technical issues with the PACS/Fluency reporting system, reports are being signed by the in house radiologist without review as a courtesy to ensure prompt reporting. The interpreting r adiologist is fully responsible for the content of the report.
--- NOTE | 2021-07-07 11:43 | P.PN ---
Subjective Date of Service: 07/07/21 Chief Complaint: Intractable N/V Subjective: No new changes (Still intermittent dizziness and nausea) Physical Examination - Vital Signs Temperature: 97.1 F Blood Pressure: 144/78 Pulse: 83 Respirations: 18 Pulse Ox (%): 98 Assessment And Plan Physician Review: Patient Assessed, Agree with Above Assessment and Plan Physician Review Additional Text: 07/07/21 11:41 Physical Exam General: Alert, In no apparent distress, Obese HEENT: Atraumatic, PERRLA, Mucous membr. moist/pink, EOMI, Sclerae nonicteric Neck: Supple, 2+ carotid pulse no bruit, No LAD, Without JVD or thyroid abnormality Respiratory: Diminished Cardiovascular: Regular rate/rhythm, Normal S1 S2 Gastrointestinal: Normal bowel sounds, No tenderness Musculoskeletal: No tenderness Integumentary: No rashes Neurological: Normal speech, Normal strength at 5/5 x4 extr, Normal tone, Normal affect - Studies Laboratory Data (last 24 hrs) 07/05/21 23:05: PT 11.8, INR 1.03 07/05/21 23:05: WBC 17.80 H, Hgb 12.1, Hct 36.7, Plt Count 482 H 07/05/21 23:05: Sodium 138, Potassium 3.4 L, BUN 16, Creatinine 1.03, Glucose 202 H, Magnesium 1.9, Total Bilirubin 0.2, AST 9 L, ALT 17, Alkaline Phosphatase 66, Lipase 71 L MRI brainacute large right cerebellar infarct, remote small right basal ganglia/ward if Assessment and Plan - Problems (Diagnosis) (1) Intractable nausea and vomiting Current Visit: Yes Status: Acute (2) Leukocytosis Current Visit: Yes Status: Acute Qualifiers: Leukocytosis type: unspecified Qualified Code(s): D72.829 - Elevated white blood cell count, unspecified (3) HTN (hypertension) Current Visit: Yes Status: Chronic Qualifiers: Hypertension type: primary hypertension Qualified Code(s): I10 - Essential (primary) hypertension (4) Morbid obesity Current Visit: Yes Status: Chronic 5acute cerebellar infarct Cystdiabetes mellitus - Plan Intractable nausea and vomitingdue to acute right cerebellar infarctwe will obtain carotid ultrasound, echocardiogram, lipid panel, neurology consult Consult PT and OT Continue as needed antiemetic Continue clear liquid diet and advance as tolerated Continue adequate blood pressure control Obtain hemoglobin A1c Continue oral hypoglycemic medicine, continue insulin sliding scale with Accu- Chek DVT PPx: Lovenox Code: Full Discharge Plan: Home Plan to discharge in: 48 Hours - Advance Directives Does patient have a Living Will: No Does patient have a Durable POA for Healthcare: No 07/07/21 11:43 Critical Care: Yes
--- NOTE | 2021-07-07 14:29 | RAD REPORT ---
EXAM DESCRIPTION: USCarotid Artery Bilateral07/07/2021 1:44 pm CLINICAL HISTORY: CVA COMPARISON: None FINDINGS: The velocity of the right internal carotid artery equals 95 cm/sec. The right ICA/CCA rati o 1.8 The velocity of the left internal carotid artery equals 87 cm/sec. The left ICA/CCA ratio 1.3 Plaque is not visualized within the carotid arteries The vertebral arteries demonstrate antegrade flow IMPRESSION: Unremarkable exam NASCET criteria used. Mild 0-49% stenosis Moderate 50-69% stenosis Severe 70-99% stenosis
[2021-07-07] MEDS: ATORVASTATIN 40 MG TAB PO SCH (21:33)
[2021-07-08 05:40] LABS: Absolute Lymphocytes (CBC) 3.5 K/uL (0.7-4.9); Hematocrit 35.9 % (36.0-45.0); Lymphocytes % 33.7 % (15.3-44.8); MPV 7.9 fL (7.6-11.3); RBC Red Blood Cell Count 4.12 M/uL (3.86-4.86)
[2021-07-08 06:01] LABS: ALT/SGPT 13 U/L (12-78); AST/SGOT 9 U/L (15-37); Albumin 2.8 g/dL (3.4-5.0); Alkaline Phosphatase 58 U/L (45-117); BUN Blood Urea Nitrogen 12 mg/dL (7-18); Bicarbonate 25 mmol/L (21-32); Bilirubin Total 0.4 mg/dL (0.2-1.0); Glucose Level 161 mg/dL (74-106); HDL Cholesterol 34 mg/dL (40-60); LDL Cholesterol, Calculated 60 (<130); Potassium 3.9 mmol/L (3.5-5.1); Protein, Total 6.8 g/dL (6.4-8.2); Sodium Level 137 mmol/L (136-145)
[2021-07-08] MEDS: INSULIN -REGULAR HUMAN 50 UNIT/0.5 ML ML SQ SCH ×4 (07:30→20:36)
[2021-07-08] MEDS ORDERED: POTASSIUM 25 MEQ EFFERV TAB PO ONE (09:00)
[2021-07-08] MEDS: HOME MED 1 EA UNK (Dapagliflozin Propanediol [Farxiga] 10 MG Tablet) PO SCH (09:00)
[2021-07-08] MEDS: ENALAPRIL 2.5 MG TAB PO SCH (09:32)
[2021-07-08] MEDS: ENOXAPARIN 40 MG/0.4 ML SQ SCH (09:32)
[2021-07-08] MEDS: CLOPIDOGREL 75 MG TABLET PO SCH (09:32)
[2021-07-08] MEDS: METOPROLOL XL 25 MG TAB PO SCH ×2 (09:32→20:35)
[2021-07-08] MEDS: MECLIZINE HCL 12.5 MG TAB PO SCH ×3 (09:33→20:37)
[2021-07-08] MEDS: ASPIRIN EC 81 MG TAB PO SCH (09:36)
--- NOTE | 2021-07-08 12:22 | P.PN ---
Subjective Date of Service: 07/08/21 Chief Complaint: Intractable N/V Subjective: Improving (Patient is doing better. She's tolerating PO diet) Physical Examination - Vital Signs Temperature: 97.0 F Blood Pressure: 157/77 Pulse: 81 Respirations: 18 Pulse Ox (%): 99 - Physical Exam General: In no apparent distress, Cooperative, Obese HEENT: Atraumatic, Normocephalic, Other (No nystagmus), EOMI Respiratory: Clear to auscultation bilaterally, Normal air movement Cardiovascular: Regular rate/rhythm, Normal S1 S2 Musculoskeletal: No clubbing, No swelling, No contractures Neurological: Normal speech, Normal tone, Cranial nerves 3-12 intact Assessment And Plan - Current Problems (Diagnosis) (1) Cerebellar stroke, acute Current Visit: Yes Status: Acute (2) Intractable nausea and vomiting Current Visit: Yes Status: Acute (3) Leukocytosis Current Visit: Yes Status: Acute Qualifiers: Leukocytosis type: unspecified Qualified Code(s): D72.829 - Elevated white blood cell count, unspecified (4) HTN (hypertension) Current Visit: Yes Status: Chronic Qualifiers: Hypertension type: primary hypertension Qualified Code(s): I10 - Essential (primary) hypertension (5) Morbid obesity Current Visit: Yes Status: Chronic Physician Review: Patient Assessed, Agree with Above Assessment and Plan Physician Review Additional Text: 07/08/21 12:20 Assessment Patient is a 46 year old female with a PMH of morbid obesity, HTN admitted with a cerebellar stroke after she presented with intractable nausea and vomiting. Acute CVA Type II DM- A1c of 8.1 HTN Morbid obesity PLAN: Patient is pending placemen to rehab Continue sx control. She is on zofran and meclizine, tolerating PO diet Continue insulin sliding scale DVT PPx: Lovenox Code: Full Discharge Plan: Home Plan to discharge in: anytime once accepted 07/08/21 12:23
--- NOTE | 2021-07-08 13:41 | ECHO ---
HEIGHT: 5 ft 6 in WEIGHT: 280 lb 0 oz DATE OF STUDY: 07/08/[address]: Hua Greco MD 2-DIMENSIONAL: YES M.MODE: YES DOPPLER: YES COLOR FLOW: YES TDS: NO PORTABLE: NO DEFINITY: NO BUBBLE STUDY: NO DIAGNOSIS: CEREBRAL VASCULAR ACCIDENT, RULE OUT VEGETATIONS CARDIAC HISTORY: CATHERIZATION: NO SURGERY: NO PROSTHETIC VALVE: NO PACEMAKER: NO MEASUREMENTS (cm) DIASTOLIC (NORMALS) SYSTOLIC (NORMALS) IVSd 1.0 (0.6-1.2) LA Diam 3.2 (1.9-4.0) LVEF 53% LVIDd 5.7 (3.5-5.7) LVIDs 4.1 (2.0-3.5) %FS 28% LVPWd 1.1 (0.6-1.2) Ao Diam 2.5 (2.0-3.7) 2 DIMENSIONAL ASSESSMENT: RIGHT ATRIUM: NORMAL LEFT ATRIUM: NORMAL RIGHT VENTRICLE: NORMAL LEFT VENTRICLE: NORMAL TRICUSPID VALVE: NORMAL MITRAL VALVE: NORMAL PULMONIC VALVE: NORMAL AORTIC VALVE: NORMAL PERICARDIAL EFFUSION: NONE AORTIC ROOT: NORMAL LEFT VENTRICULAR WALL MOTION: NORMAL DOPPLER/COLOR FLOW: MILD MITRAL AND TRICUSPID REGURGITATION. COMMENTS: MILD MITRAL AND TRICUSPID REGURGITATION. NORMAL LEFT VENTRICULAR SIZE AND FUNCTION. NO WALL MOTION ABNORMALITY. NO VEGETATION. TECHNOLOGIST: Jasmin LOGAN
[2021-07-08] MEDS: ATORVASTATIN 40 MG TAB PO SCH (20:36)
--- NOTE | 2021-07-09 00:59 | CON ---
Consultation called because of stroke. History Of Present Illness: Ms. Mckenzie is a 46-year-old right-handed patient with hy pertension and type 2 insulin-dependent diabetes mellitus, who comes to [facility] on 2021 after developing nausea, vomiting following dinner. She had a tendency to fall towards the righ t side. On arrival at [facility] on 07/05/2021 at 2229 hours, however, she was not clear as to the onset of her symptoms, it was more or less as the day before on the July 04. In any ev ent, despite the negative head CT scan, she was not felt to be a candidate for tPA. It was felt that the symptoms were related to some issue with her food. She also arrived on the weekend where MRI of the brain was not available. Wednesday, which is when brain MRI was available on , that is yesterd ay, the patient was identified to have a large right cerebellar infarct. There was also small remote right basal ganglia and ward radiata infarct. The infarct is off the right posterior circulation. Her carotid artery ultrasound was unremarkable. Her echocardiogram showed mitral and tricuspid reg urgitation with normal left ventricular size and function. No wall motion abnormality and no vegetat ion. In terms of her clinical deficits, she still has difficulty ambulating with a tendency to fall to the right and incoordination of the right upper and lower extremity. Laboratory Studies: Initially showed an elevated white blood cell count of 17.8 on the , today i s 10.4 with normal neutrophils. INR unremarkable. Blood sugars range up to 230. Otherwise, sodium, potassium, chloride, carbon dioxide were normal. Liver function studies are unremarkable. HDL chol esterol 34, LDL 60. Urinalysis was unremarkable except for slightly elevated ketones and glucose. U rine drug screen was negative. COVID-19 testing and influenza testing negative. Chest x-ray was rem arkable for pulmonary vascular being accentuated to low lung volume, but no significant abnormalities . Past Medical History: As noted. Allergies: NO KNOWN DRUG ALLERGIES. Medications: Aspirin 160 mg daily, Lipitor 40 mg at bedtime, Plavix 75 mg daily, Vasotec 2.5 mg brenna y, Lovenox 40 mg subcutaneously daily, metformin 500 mg twice daily, Antivert 25 mg 3 times daily, To prol-XL 25 mg twice daily, Zofran 4 mg as needed, Phenergan 12.5 mg every 4 hours as needed. Family History: Noncontributory. Review of Systems: Aside from mentioned above where she has nausea and vomiting after eating, she has no recent fevers o r chills, myalgias, arthralgias, rash, headache, weight change. No psychiatric issues or gastrointes tinal, genitourinary issues. Physical Examination: Vital Signs: Blood pressure 140/67, pulse 85, respiratory rate 18, temperature 97.0, oxygen saturati on 98%, weight 280 pounds, height 5 feet 6 inches, BMI 45.2. General: Ms. Mckenzie is resting in a chair beside bed, eating her lunch. HEENT: She does have significant left eye proptosis with increased palpebral fissure. Otherwise, sh e has a subtle decrease to the left nasolabial fold with good excursions and smiling. Extremities: She has dysmetria noted in the right upper and lower extremity. No weakness noted in t he right or left side. She has symmetric reflexes. With gait, she tends to ambulate towards the rig ht side and using a rolling walker. She did ambulate about 5 feet requiring contact guard assistance . Assessment: Ms. 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 She has hypertension, diabetes mellitus, and ex treme obesity. Plan: 1.Aspirin, Plavix, folic acid, and statin as indicated. 2.Aggressive management of hypertension. However, in the next 3-5 days mild permissive hypertension . 3.Aggressive inpatient rehabilitation is recommended to help her recover the best. She would benefi t from physical, speech, and occupational therapy. She does have uncontrolled hypertension, diabetes, and does require at least 3 days of attending physician evaluation and medication adjustmen t while hospitalized. LB/RUPERTL Voice ID: [id number] Report ID: [id number]
[2021-07-09] MEDS: INSULIN -REGULAR HUMAN 50 UNIT/0.5 ML ML SQ SCH ×4 (07:30→20:43)
[2021-07-09] MEDS: HOME MED 1 EA UNK (Dapagliflozin Propanediol [Farxiga] 10 MG Tablet) PO SCH (09:00)
--- NOTE | 2021-07-09 09:30 | P.PN ---
Subjective Date of Service: 07/09/21 Chief Complaint: Intractable N/V Subjective: No new changes, Improving Physical Examination - Vital Signs Temperature: 98.4 F Blood Pressure: 120/60 Pulse: 76 Respirations: 16 Pulse Ox (%): 96 - Physical Exam General: Alert, In no apparent distress, Cooperative HEENT: Atraumatic, Normocephalic Respiratory: Other (Breathing not laboured on room air) Cardiovascular: No edema Assessment And Plan - Current Problems (Diagnosis) (1) Cerebellar stroke, acute Current Visit: Yes Status: Acute (2) Intractable nausea and vomiting Current Visit: Yes Status: Acute (3) Leukocytosis Current Visit: Yes Status: Acute Qualifiers: Leukocytosis type: unspecified Qualified Code(s): D72.829 - Elevated white blood cell count, unspecified (4) HTN (hypertension) Current Visit: Yes Status: Chronic Qualifiers: Hypertension type: primary hypertension Qualified Code(s): I10 - Essential (primary) hypertension (5) Morbid obesity Current Visit: Yes Status: Chronic Physician Review: Patient Assessed, Agree with Above Assessment and Plan Physician Review Additional Text: Assessment Patient is a 46 year old female with a PMH of morbid obesity, HTN admitted with a cerebellar stroke after she presented with intractable nausea and vomiting. Acute CVA Type II DM- A1c of 8.1 HTN Morbid obesity PLAN: Patient is medically cleared pending placement to IP rehab Continue DAPT and high intensity statin Continue sx control. She is on zofran and meclizine, tolerating PO diet Continue insulin sliding scale DVT PPx: Lovenox Code: Full Discharge Plan: Home Plan to discharge in: anytime once accepted
[2021-07-09] MEDS: ENOXAPARIN 40 MG/0.4 ML SQ SCH (09:54)
[2021-07-09] MEDS: MECLIZINE HCL 12.5 MG TAB PO SCH ×3 (09:54→20:43)
[2021-07-09] MEDS: ENALAPRIL 2.5 MG TAB PO SCH (09:55)
[2021-07-09] MEDS: ASPIRIN EC 81 MG TAB PO SCH (09:55)
[2021-07-09] MEDS: CLOPIDOGREL 75 MG TABLET PO SCH (09:55)
[2021-07-09] MEDS: METOPROLOL XL 25 MG TAB PO SCH ×2 (09:55→20:44)
[2021-07-09 20:37] LABS: SARS-COV-2 RT PCR NEGATIVE (NEGATIVE)
[2021-07-09] MEDS: ATORVASTATIN 40 MG TAB PO SCH (20:43)
[2021-07-09 21:57] VITALS: O2SAT 100
[2021-07-10] MEDS: INSULIN -REGULAR HUMAN 50 UNIT/0.5 ML ML SQ SCH (07:30)
[2021-07-10] MEDS: HOME MED 1 EA UNK (Dapagliflozin Propanediol [Farxiga] 10 MG Tablet) PO SCH (09:00)
[2021-07-10] MEDS: ASPIRIN EC 81 MG TAB PO SCH (09:04)
[2021-07-10] MEDS: MECLIZINE HCL 12.5 MG TAB PO SCH (09:04)
[2021-07-10] MEDS: METOPROLOL XL 25 MG TAB PO SCH (09:05)
[2021-07-10] MEDS: ENALAPRIL 2.5 MG TAB PO SCH (09:05)
[2021-07-10] MEDS: ENOXAPARIN 40 MG/0.4 ML SQ SCH (09:06)
[2021-07-10] MEDS: CLOPIDOGREL 75 MG TABLET PO SCH (09:06)
[2021-07-10 09:10] VITALS: BP 140/84
--- NOTE | 2021-07-10 10:11 | P.DS ---
Admission Date: 07/06/21 Discharge Date: 07/10/21 Disposition: TRANSFER TO INPATIENT REHAB Discharge Condition: GOOD Reason for Admission: Intractable N/V - Problems (1) Cerebellar stroke, acute Current Visit: Yes Status: Acute (2) Intractable nausea and vomiting Current Visit: Yes Status: Acute (3) Leukocytosis Current Visit: Yes Status: Acute Qualifiers: Leukocytosis type: unspecified Qualified Code(s): D72.829 - Elevated white blood cell count, unspecified (4) HTN (hypertension) Current Visit: Yes Status: Chronic Qualifiers: Hypertension type: primary hypertension Qualified Code(s): I10 - Essential (primary) hypertension (5) Morbid obesity Current Visit: Yes Status: Chronic Hospital Course: Patient is a 46 year old female with a PMH of morbid obesity, HTN who was admitted with a cerebellar stroke after she presented with intractable nausea and vomiting. She has done well with medical management. She will be discharged inpatient rehab with DAPT, high intensity statin. Her hospital course has been unremarkable. Vital Signs/Physical Exam: Temp Pulse Resp BP Pulse Ox 98.3 F 78 18 140/84 100 07/10/21 04:00 07/10/21 09:05 07/10/21 04:00 07/10/21 09:05 07/10/21 04:00 General: Alert, In no apparent distress, Cooperative HEENT: Atraumatic, Normocephalic, EOMI Respiratory: Normal air movement Musculoskeletal: No clubbing, No swelling, No contractures, No erythema Neurological: Normal speech, Normal affect Laboratory Data at Discharge: WBC 10.40 K/uL (4.3-10.9) D 07/08/21 05:05 Hgb 11.9 g/dL (12.0-15.0) L 07/08/21 05:05 Hct 35.9 % (36.0-45.0) L 07/08/21 05:05 Plt Count 410 K/uL (152-406) H 07/08/21 05:05 PT 11.8 SECONDS (9.5-12.5) 07/05/21 23:05 INR 1.03 07/05/21 23:05 Sodium 137 mmol/L (136-145) 07/08/21 05:05 Potassium 3.9 mmol/L (3.5-5.1) 07/08/21 05:05 BUN 12 mg/dL (7-18) 07/08/21 05:05 Creatinine 0.75 mg/dL (0.55-1.3) 07/08/21 05:05 Glucose 161 mg/dL (74-106) H 07/08/21 05:05 Magnesium 2.2 mg/dL (1.8-2.4) 07/07/21 05:15 Total Bilirubin 0.4 mg/dL (0.2-1.0) 07/08/21 05:05 AST 9 U/L (15-37) L 07/08/21 05:05 ALT 13 U/L (12-78) 07/08/21 05:05 Alkaline Phosphatase 58 U/L (45-117) 07/08/21 05:05 Triglycerides 138 mg/dL (<150) 07/08/21 05:05 Cholesterol 122 mg/dL (<200) 07/08/21 05:05 HDL Cholesterol 34 mg/dL (40-60) L 07/08/21 05:05 Cholesterol/HDL Ratio 3.59 07/08/21 05:05 Lipase 71 U/L (73-393) L 07/05/21 23:05 Home Medications: Atorvastatin Calcium 40 mg BEDTIME 07/06/21 Bumetanide [Bumex] 10 mg BID 07/06/21 Calcitriol [Rocaltrol] 0.5 mcg DAILY 07/06/21 Dapagliflozin Propanediol [Farxiga] 10 mg PO DAILY 07/06/21 Enalapril [Vasotec*] 2.5 mg PO DAILY 07/06/21 Insulin NPH Human [Novolin N (Humulin N)*] 15 units SQ BID 07/06/21 Metformin ER [Glucophage ER*] 500 mg PO BID 07/06/21 Metoprolol Succinate 25 mg PO BID 07/06/21 Semaglutide [Ozempic] 0.25 mg SQ EVERY 7TH DAY 07/06/21 Spironolactone 25 mg PO DAILY 07/06/21 Aspirin [Aspirin EC 81 MG] 81 mg PO DAILY #30 tablet. 07/10/21 Clopidogrel Bisulfate [Plavix*] 75 mg PO DAILY tablet 07/10/21 Meclizine HCl [Antivert*] 25 mg PO TID tab 03/03/22 New Medications: Aspirin [Aspirin EC 81 MG] 81 mg PO DAILY #30 tablet.dr Followup: Unknown,U [Primary Care Provider] -
[2021-07-10 10:25] VITALS: TEMP 96.9
== END 2021-07-10 12:05 | DRG 65 ==
LOC: ER 22:06 → ERHOLD 07-06 03:41 → 2ND 07-06 07:32
PROVIDERS: ADMIT Hospitalist; ATTEND Hospitalist
DX: I63.9 Cerebral infarction, unspecified (principal); Z68.42 Body mass index [BMI] 45.0-49.9, adult; R11.2 Nausea with vomiting, unspecified; I10 Essential (primary) hypertension; E11.9 Type 2 diabetes mellitus without complications; E66.01 Morbid (severe) obesity due to excess calories; D72.829 Elevated white blood cell count, unspecified; R27.8 Other lack of coordination; Z20.822 Contact with and (suspected) exposure to COVID-19
CPT/HCPCS: 0240U; 36415; 70551; 71045; 71275; 74177; 80048; 80053; 80061; 80076; 80307; 80320; 81003; 82947; 83036; 83690; 83735; 83880; 84484; 84703; 85025; 85610; 93306; 93880; 96361; 96365; 96366; 96375; 97116; 97161; 97165; 97530; 99285; J1650; J2405; J2550; J7030; J8597; Q9967

== ENCOUNTER 2021-07-09 16:32 | Inpatient (IN) | payer BC ==
--- NOTE | 2021-07-10 10:27 | R.PREADM ---
PRE-ADMISSION SCREENING FORM SCREENING DATE AND TIME 07/09/2021 16:49 (MANAGER ASSURANCE) ANTICIPATED REHAB ADMISSION DATE 07/11/2021 REFERRING FACILITY [facility] REFERRAL DATE AND TIME 07/09/2021 16:50 (MANAGER ASSURANCE) REFERRAL ROOM# 201 ACUTE ADMIT DATE 07/06/2021 Previous Rehabilitation(s): No. REFERRING PHYSICIAN MATILDE ISRAEL MD REHAB FACILITY [facility] CLINICAL LIAISON Osvaldo Bob PHYSICIAN REVIEWER Dr. Kemal Conway M.D. [facility]# [id number] [id number] NAME TOYA JAMES ADDRESS [address] [place]NDEZ PHONE [facility] [id number] DATE OF 1975 AGE 46 SSN# [id number] GENDER female MARITAL STATUS Single (Never ) PREF. LANGUAGE (IF NON-UPPER SORBIAN) Belgian ADMIT FROM 02 - [facility] PRE-HOSPITAL LIVING SETTING 01 - Home (private home/apt. board/care, assisted living, residential, transitional living) HOME TYPE AND DETAILS Type of home: single family house # of steps to enter the residence: 0 # of steps within the residence: 0 # of levels in the residence: 1 PRE-HOSPITAL LIVING WITH Family/Relatives FAMILY SUPPORT Yes PHONE PRIMARY FAMILY CONTACT ON ADM.? no IS PRIMARY FAMILY CONTACT AUTH. REP.? no PHONE 1ST CONTACT ON ADM. no IS 1ST CONTACT AUTH. REP.? no PHONE 2ND CONTACT ON ADM.? 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 No ANOTHER DEMOCRAT RESPONSIBLE? No PRIMARY REHAB/ACUTE DIAGNOSIS: ACUTE CVA ONSET DATE 07/06/2021 REHAB IMPAIRMENT CATEGORY (EDITH): 01 Stroke (STR) MEETS 60% rule AFFECTED EXTREMITIES: LLE, and LUE PRIMARY DIAGNOSIS-RELATED SURGERIES: N/A INTERVENTIONS: - DIABETES Monitor blood glucose levels and administer medication as indicated by Physician RISK FOR COMPLICATIONS: - CVA pt's blood pressures have been inconsistent and require monitoring and medication management as inidi cated by physician. - HYPERTENSION WEAKNESS - DIABETIC COMPLICATIONS Regular monitoring and management of blood glucose levels. - NAUSEA vomiting after dinner SUMMARY OF ACUTE HOSPITALIZATION: Pt. is a 46 yo Right-handed female. On 07/06/2021 Pt. presented to [facility] with sudden onset of left-side weakness. On 07/06/2021 she was admitted to [facility] with diagnosis CVA. Her impairment category is CVA. Pre-morbidly, Pt. was independent/mod-I in Locomotion, Social Cognition, Safety Awareness, and Balanc e; and she had good Transfers Control, Sphincter Control, Self-Care, Communication, and Endurance. Currently, she has deficits of Locomotion, Safety Awareness, Social Cognition, Balance, Sphincter Con trol, Self-Care, Endurance, Communication, and Transfers Control. Pt. is now referred to [facility] for acute in-patient rehabilitation in order to maximize patient's functional independence in activities of daily living, strength, ROM, and mobi lity. Patient has realistic goal of being discharged at assistance level 7-Ind to reside at Home with Fami ly/Relatives. PAST MEDICAL HISTORY HTN DIABETES MELLITUS Vomiting (R11.1) PAST SURGICAL HISTORY: Right eye orbital fracture with plate placement. MEDICATION ALLERGIES: No Known Drug Allergies (NKDA) ENVIRONMENTAL ALLERGIES: - Substance Allergies None Known - Other Allergies None Known CODE STATUS: Full code WEIGHT/HEIGHT/BMI: WEIGHT 280 lbs HEIGHT 5' 6" BMI 45.2 DIET: - Diet Type Regular - Diet - Solid Texture Regular - Diet - Liquid Texture Regular - Tube Feed N/A SKIN DIAGRAM: on Head; extent - small; stage - NS(Not Stageable). Treatment - Per Physician's Orders. REVIEW OF SYSTEMS: - Gen Alert and awake Lying in bed No apparent distress Oriented to: person, time, and place - Vital Signs Temperature: 98.3 F SBP/DBP: 146/77 Pulse: 80 Resp: 18 Vital signs stable, afebrile - CVS RRR VITAL SIGNS Temperature: 98.3 F SBP/DBP: 146/77 Pulse: 80 Resp: 18 Vital signs stable, afebrile MEDICATIONS/TREATMENT: Other- See attached MAR (Medication Administration Record). CURRENT SPHINCTER CONTROL: Pre-hospital bladder status: unspecified # of bladder accidents in the last 7 days prior to screenin Pre-hospital bowel status: unspecified # of bowel accidents in the last 7 days prior to screenin Last Bowel Movement Date: 07/09/2021 CURRENT LOCOMOTION STATUS: distance walked 26'10' WITH ROLLING WALKER CGA/SBA DETAILED CURRENT FUNCTIONAL STATUS: - Bladder accident frequency: 7-Ind - No accidents in the past 7 days - Bowel accident frequency: 7-Ind - No accidents in the past 7 days - Walking score based on distance walked: 0(N/A) score based on distance walked: 1(<=50ft) - Wheelchair score based on distance traveled: 0(N/A) QI SCORES: - Self-Care A. Eating 03-Partial/moderate assistance B. Oral hygiene 03-Partial/moderate assistance C. Toileting hygiene 03-Partial/moderate assistance E. Shower/bathe self 03-Partial/moderate assistance F. Upper body dressing 03-Partial/moderate assistance G. Lower body dressing 03-Partial/moderate assistance H. Putting on/taking off footwear 88-Not attempted due to medical condition or safety concerns - Mobility A. Roll left and right 03-Partial/moderate assistance B. Sit to lying 03-Partial/moderate assistance C. Lying to sitting on side of bed 03-Partial/moderate assistance D. Sit to stand 03-Partial/moderate assistance E. Chair/tzw-go-ncojw transfer 03-Partial/moderate assistance F. Toilet transfer 03-Partial/moderate assistance G. Car transfer 88-Not attempted due to medical condition or safety concerns I. Walk 10 feet 03-Partial/moderate assistance J. Walk 50 feet with two turns 88-Not attempted due to medical condition or safety concerns K. Walk 150 feet 88-Not attempted due to medical condition or safety concerns L. Walking 10 feet on uneven surfaces 88-Not attempted due to medical condition or safety concerns M. 1 step (curb) 88-Not attempted due to medical condition or safety concerns N. 4 steps 88-Not attempted due to medical condition or safety concerns O. 12 steps 88-Not attempted due to medical condition or safety concerns P. Picking up object 88-Not attempted due to medical condition or safety concerns R. Wheel 50 feet with two turns 88-Not attempted due to medical condition or safety concerns S. Wheel 150 feet 88-Not attempted due to medical condition or safety concerns - Bladder and Bowel Bladder continence Bowel continence - Endurance Fair - Balance Fair - Safety Awareness Fair CURRENT FUNC. DEFICITS: Self-Care, Mobility, Endurance, Balance, and Safety Awareness CURRENT / PREVIOUS ASSISTIVE DEVICES: 3-in-1 Commode Rolling Walker Tub Bench HISTORY OF FALLS. HAS THE PATIENT HAD TWO OR MORE FALLS IN THE PAST YEAR OR ANY FALL WITH INJURY IN T HE PAST YEAR?: No PRIOR SURGERY. DID THE PATIENT HAVE MAJOR SURGERY DURING THE 100 DAYS PRIOR TO ADMISSION?: No THERAPY NOTES FROM ACUTE CARE: Attached. SPECIAL NEEDS: - Safety Concerns Fall precautions needed due to Poor balance Skin breakdown precautions needed due to skin breakdown risk PRECAUTIONS: - Fall Precaution LWeakness PATIENT NEEDS ACTIVE AND ONGOING THERAPEUTIC INTERVENTION OF MULTIPLE THERAPY DISCIPLINES, INCLUDING: - Dietary and Nutrition Adequate Nutrition. Nutritional Education. Nutritional Supplements. Evaluate and Treat. - Occupational Therapy Cognitive Retraining. Patient needs Occupational Therapy for a daily minimum of 1.5 hours at least 5 out of 7 days, to improve Activities of Daily Living, including: Eating, Grooming, Bathing, Dressing, Toileting, Toilet Transfers, Community Reintegration, Higher functional activities, Adaptive Equipme nt, Splinting, Household Tasks, and Other activities as determined. Transfer Training. ADL Training. Evaluate and Treat. Patient/Family Education. Visual Perceptual Training. Household Tasks. Adaptive E quipment. UE Strengthening. - Speech Therapy Cognitive Training. Expressive Language Skills. Patient needs Speech Therapy for a daily minimum of 1 .5 hours at least 5 out of 7 days, to improve: Swallowing, Cognition, Language Skills, and Compensato ry Strategies. Receptive Language Skills. Memory Strategies. Speech Intelligibility Training. Evaluat e and Treat. - Physical Therapy Patient needs Physical Therapy for a daily minimum of 1.5 hours at least 5 out of 7 days, to improve: Mobility, Strengthening, Transfers, Stretching, ROM, Endurance, Ability to manage stairs, Gait, and Balance. Mobility Training. Gait Training. Safety Awareness. Balance Training. Transfer Training. Radhika luate and Treat. Patient/Family Education. PATIENT NEEDS CLOSE MEDICAL SUPERVISION BY A REHABILITATION PHYSICIAN FOR: Coordination of Treatment Team PATIENT REQUIRES 24X7 REHAB NURSING FOR MEDICAL AND FUNCTIONAL MGT. OF THE FOLLOWING DEFICITS: Disease Management Medication Management Patient requires 24x7 Rehabilitation Nursing for: Pain Issues, Identifying and preventing risk factor s, Monitoring and reporting current medical conditions, Assisting with ambulation and transfer, Álvaro ting with all ADL-s, Teaching patients about disease process and medications, Family teaching, Provid ing safe environment, Bowel and Bladder Issues, Skin Integrity, and Medication Management Patient/Family Education Providing Safe Environment Skin Integrity PATIENT REQUIRES INTENSIVE, COORDINATED INTERDISCIPLINARY APPROACH TO REHAB: Arranging Home Equipment/Services Discharge Planning Family Intervention/Training Patient needs Dietary and Nutrition Services for: Adequate Nutrition, Nutritional Supplements, and Nu tritional Education Patient needs District Scout Executive and/or Case Management for: Discharge Planning, Arranging Home Equipmen t or Services, and Family Interventions District Scout Executive/Case Management PATIENT REHAB POTENTIAL: Bg JAMES is able and expected to receive 3 hours of individualized therapy daily on at least 5 of janiya ry 7 days Bg JAMES's prognosis for significant practical improvement within a reasonable period of time appears Good Expected level of measurable improvement will be of a practical value to gB JAMES's functional capaci ty or adaptations to impairments Has a viable Discharge Plan Medically appropriate; condition is sufficiently stable to participate in intensive rehab program DISCHARGE PLAN: - Estimated Length of Stay (days) 17. - Consensus on plan Discharge plan has been discussed with primary caregiver. Patient/Family is in agreement with the inna n. Primary caregiver is in agreement with the plan. - Patient/Family Goals Return home independently. - Planned Living Setting Upon Discharge Home, to live with Family/Relatives. Transitional Living. RECOMMENDED CARE LEVEL: IRF RECOMMENDATION DETAILS: Recommended Admission to Comprehensive Rehabilitation Program to Increase Functional [place] SCREENER'S COMPLETENESS CONFIRMATION: - Screening Confirmation The patient data collection on this preadmission screening form is finished The patient data collection on this preadmission Jscreening form is finished PHYSICIANS REVIEW AND ADMISSION DETERMINATION Admit - Based on my review of the Pre-Admission Screening results, in my medical judgment and experie nce, I concur with the findings and recommend admission to [facility], as this patient requires an IRF level of care. SIGNATURE PANEL: Associate Attorney - [electronically] signed by Osvaldo Bob on 07/10/2021 at 09:06 (MANAGER ASSURANCE) Associate Attorney - [electronically] signed by Doris Blanco on 07/10/2021 at 09:39 (MANAGER ASSURANCE) Physician Reviewer - [electronically] signed by Dr. Kemal Conway M.D. on 07/10/2021 at 10:26 (MANAGER ASSURANCE )
--- OUTSIDE RECORDS SUMMARY | 2021-07-10 13:16 | XMS REPORT | Continuity of Care Document ---
:1975 Author Organization [facility] t Address [address] [place] [address] Care Team Providers Name Role Phone KATJA MALLOY Primary Care Physician Unavailable Meredith SERRATO Attending Clinician Unavailable RONDA COURTNEY Attending Clinician Unavailable Celeste Roman MD Attending Clinician Celeste ROMAN Attending Clinician Unavailable Payers Payer Name Policy Type Policy Number Effective Date Expiration Date S terrance [facility] [id number] 2016 00:00:00 Problems Condition Condition Condition Status Onset Resolution Last Treating Co mments Source Name Details Category Date Date Treatment Clinician Date Troponin I Troponin I Disease Active U nivers above above 2-11 [place] 00 [place] Acute on Acute on Disease Active Unive rs chronic chronic 2-11 ity of diastolic diastolic 00:00: [place] (congestiv (congestiv 00 Me dical e) heart e) heart Branch failure failure Morbid Morbid Disease Active 2019- Univers obesity obesity 2-10 ity of with body with body 00:00: [place] mass index mass index 00 Me [...] Bilious Disease Active 2018-05 Univers vomiting vomiting 05-10 ity of with with 00:00: [place] nausea nausea [facility] Other Other Disease Active 2018-05 Univers constipati constipati 05-10 it y of on on 00:00: [place] [facility] Abnormal Abnormal Disease Active 2018-[address] of the CT of the 05-10 ity of abdomen abdomen 00:00: [place] [address] 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 HTN HTN Disease Active Univers (hypertens (hypertens it y of ion) ion) [facility] Allergies, Adverse Reactions, Alerts Allergy Allergy Status Severity Reaction(s) Onset Inactive Treating Comm ents Source Name Type Date Date Clinician NO KNOWN Drug Active Univers ALLERGIE Class ity of S [facility] Social History Social Habit Start Date Stop Date Quantity Comments Source Exposure to Not sure [facility] SARS-CoV-2 [facility] (event) [place] Alcohol intake 2021-05-27 2021-05-27 Ex-drinker University of 00:00:00 00:00:00 (finding) [facility] Tobacco use and 2019-02-09 2019-02-09 Never used Universit y of exposure 00:00:00 00:00:00 [facility] History of 2019-02-07 Smoker University of tobacco use 00:00:00 [facility] Sex [birth year] Universit y of 00:00:00 00:00:00 [facility] Smoking Status Start Date Stop Date Source Former smoker 2019-02-09 00:00:00 2019-02-09 00:00:00 Universi ty of [facility] Medications Ordered Filled Start Stop Current Ordering Indication Dosage Frequency Signature Comments Components Source Medication Medication Date Date Medication? Clinician (SIG) Name Name magnesium 2020-05 Yes [id number] 400mg Take 400 Univers oxide 400 0-07 mg by ity of mg 00:00: mouth at [place] magnesium 00 bedtime. Medica l Tab Branch magnesium 2020-05 Yes [id number] 400mg Take 400 Univers oxide 400 0-07 mg by ity of mg 00:00: mouth at [place] magnesium 00 bedtime. Medica l Tab Branch spironolact 2020-05 Yes [id number] 12.5mg Take 0.5 Univers one 25 mg 0-05 9100 tablets by ity of tablet 00:00: mouth [place] 00 daily. Medical Branch atorvastati 2020-05 Yes [id number] 40mg Take 1 Univers n 40 mg 0-05 tablet by ity of tablet 00:00: mouth at [place] 00 bedtime. Medical Branch enalapril 2020-05 Yes [id number] TAKE 1 Univers 2.5 mg 0-05 9100 TABLET BY ity of tablet 00:00: MOUTH [place] 00 EVERY DAY Medical Branch calcitrioL 2020-05 Yes [id number] .5ug Take 1 Univers 0.5 mcg 0-05 capsule by ity of capsule 00:00: mouth [place] 00 daily. Medical Branch bumetanide 2020-05 Yes [id number] 1mg Take 0.5 Univers 2 mg tablet 0-05 9100 tablets by it y of 00:00: mouth 2 [place] 00 (two) Medical times Branch daily. dapaglifloz 2020-05 Yes [id number] 10mg Take 1 Univers in 0-05 tablet by ity of (FARXIGA) 00:00: mouth [place] 10 mg 00 daily. Medical tablet Branch insulin NPH 2020-05 Yes [id number] 15U inject 15 Univers and regular 0-05 Units ity of human 70-30 00:00: [place] (NOVOLIN 00 skin every Medic al 70/30 U-100 morning Branc h INSULIN) and 100 unit/mL evening. (70-30) injection metformin 2020-05 Yes [id number] 1000mg Take 2 Univers ER 500 mg 0-05 tablets by ity of 24 hr 00:00: mouth 2 [place] tablet 00 (two) Medical times Branch daily. semaglutide 2020-05 Yes [id number] .5mg inject 0.5 Univers (OZEMPIC) 0-05 mg under ity of 0.25 mg or 00:00: the skin [place] 0.5 mg(2 00 weekly. Medical mg/1.5 mL) Branch PnIj spironolact 2020-05 Yes [id number] 12.5mg Take 0.5 Univers one 25 mg 0-05 9100 tablets by ity of tablet 00:00: mouth [place] 00 daily. Medical Branch atorvastati 2020-05 Yes [id number] 40mg Take 1 Univers n 40 mg 0-05 tablet by ity of tablet 00:00: mouth at [place] 00 bedtime. Medical Branch enalapril 2020-05 Yes [id number] TAKE 1 Univers 2.5 mg 0-05 9100 TABLET BY ity of tablet 00:00: MOUTH [place] 00 EVERY DAY Medical Branch calcitrioL 2020-05 Yes [id number] .5ug Take 1 Univers 0.5 mcg 0-05 capsule by ity of capsule 00:00: mouth [place] 00 daily. Medical Branch bumetanide 2020-05 Yes [id number] 1mg Take 0.5 Univers 2 mg tablet 0-05 9100 tablets by it y of 00:00: mouth 2 [place] 00 (two) Medical times Branch daily. dapaglifloz 2020-05 Yes [id number] 10mg Take 1 Univers in 0-05 tablet by ity of (FARXIGA) 00:00: mouth [place] 10 mg 00 daily. Medical tablet Branch insulin NPH 2020-05 Yes [id number] 15U inject 15 Univers and regular 0-05 Units ity of human 70-30 00:00: [place] (NOVOLIN 00 skin every Medic al 70/30 U-100 morning Branc h INSULIN) and 100 unit/mL evening. (70-30) injection metformin 2020-05 Yes [id number] 1000mg Take 2 Univers ER 500 mg 0-05 tablets by ity of 24 hr 00:00: mouth 2 [place] tablet 00 (two) Medical times Branch daily. semaglutide 2020-05 Yes [id number] .5mg inject 0.5 Univers (OZEMPIC) 0-05 mg under ity of 0.25 mg or 00:00: the skin [place] 0.5 mg(2 00 weekly. Medical mg/1.5 mL) Branch PnIj metoprolol Yes [id number] 25mg Take 1 Univers succinate 3-04 tablet by ity o f XL 25 mg 24 00:00: mouth 2 [place] hr tablet 00 (two) Medical times Branch daily. metoprolol Yes [id number] 25mg Take 1 Univers succinate 3-04 tablet by ity o f XL 25 mg 24 00:00: mouth 2 [place] hr tablet 00 (two) Medical times Branch daily. 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 Dx: Medic al PEN NEEDLE) E 11.69. Bran ch 31 gauge x Please 316" Ndle dispense the pen needles approved by Insurance. Insulin 2020-0 Yes Use as Univers Pe Ell, 6-23 directed ity of Disposable, 00:00: [place] (ADVOCATE week. Dx: Medic al PEN NEEDLE) E 11.69. Bran ch 31 gauge x Please 316" Ndle dispense the pen needles approved by Insurance. aspirin 81 2020-0 Yes [id number] 81mg Take 1 Univers mg chewable 5-06 tablet by ity of tablet 00:00: mouth [place] 00 daily with Medical breakfast. Branch aspirin 81 2020-0 Yes [id number] 81mg Take 1 Univers mg chewable 5-06 tablet by ity of tablet 00:00: mouth [place] 00 daily with Medical breakfast. Branch blood sugar 2020-0 Yes [id number] Use as Univers diagnostic 2-27 directed ity o f (ADVANCED 00:00: [place] GLUC METER 00 Medical TEST STRIP) Branch strip blood sugar 2019-0 Yes [id number] Use as Univers diagnostic 07-06 directed ity o f (ADVANCED 00:00: [place] GLUC METER 00 Medical TEST STRIP) Branch strip nystatin 2020-0 Yes [id number] Apply to Univers 100,000 1-15 area(s) 2 ity of unit/gram 00:00: (two) [place] powder 00 times Medical daily. Branch nystatin 2020-0 Yes [id number] Apply to Univers 100,000 1-15 area(s) 2 ity of unit/gram 00:00: (two) [place] powder 00 times Medical daily. Branch PROAIR HFA 2020-0 Yes [id number] INHALE 2 Univers 90 1-03 PUFFS ity of mcg/actuati 00:00: EVERY 6 [place] on inhaler 00 HOURS Medic al NEEDED FOR Branch WHEEZING AND SHORTNESS OF BREATH PROAIR HFA 2020-0 Yes [id number] INHALE 2 Univers 90 1-03 PUFFS ity of mcg/actuati 00:00: EVERY 6 [place] on inhaler 00 HOURS Medic al NEEDED FOR Branch WHEEZING AND SHORTNESS OF BREATH Polyethylen 2019- Yes [id number] 1{packe Take 1 Univers e Glycol 0-03 t} Packet by ity of 3350 00:00: mouth [place] (MIRALAX) 00 daily. Medical 17 gram Branch powder Polyethylen 2019- Yes [id number] 1{packe Take 1 Univers e Glycol 0-03 t} Packet by ity of 3350 00:00: mouth [place] (MIRALAX) 00 daily. Medical 17 gram Branch powder Immunizations Ordered Filled Immunization Date Status Comments [facility] e Immunization Name Name Influenza Virus 2021-05-27 Completed Universit y of Vaccine Quad IM, 00:00:00 [place] Me dical Preserv and ABX Branch Free 6 MO-64 YRS Influenza Virus 2021-05-27 Completed Universit y of Vaccine Quad IM, 00:00:00 [place] Me dical Preserv and ABX Branch Free 6 MO-64 YRS SARS-COV-2 COVID-19 2021-02-11 Completed Unive rsity of PFIZER VACCINE 00:00:00 [facility] SARS-COV-2 COVID-19 2021-02-11 Completed Unive rsity of PFIZER VACCINE 00:00:00 [facility] Pneumococcal 13 2020-07-11 Completed Universit y of Conjugate, PCV13 00:00:00 [facility] dical (Prevnar 13) [place] Influenza Virus 2020-07-11 Completed Universit y of Vaccine Quad .5 mL 00:00:00 [facility] 6+ MO Branch Pneumococcal 13 2020-07-11 Completed Universit y of Conjugate, PCV13 00:00:00 [facility] dical (Prevnar 13) [place] Influenza Virus 2020-07-11 Completed Universit y of Vaccine Quad .5 mL 00:00:00 [facility] 6+ MO Branch SARS-COV-2 COVID-19 2020-06-10 Completed Unive rsity of PFIZER VACCINE 00:00:00 [facility] SARS-COV-2 COVID-19 2020-06-10 Completed Unive rsity of PFIZER VACCINE 00:00:00 [facility] SARS-COV-2 COVID-19 2020-05-20 Completed Unive rsity of PFIZER VACCINE 00:00:00 [facility] SARS-COV-2 COVID-19 2020-05-20 Completed Unive rsity of PFIZER VACCINE 00:00:00 [facility] Pneumococcal 13 2019-07-10 Completed Universit y of Conjugate, PCV13 00:00:00 [facility] dical (Prevnar 13) [place] Influenza Virus 2019-07-10 Completed Universit y of Vaccine Quad .5 mL 00:00:00 [facility] 6+ MO [place] Pneumococcal 13 2019-07-10 Completed Universit y of Conjugate, PCV13 00:00:00 [facility] dical (Prevnar 13) [place] Influenza Virus 2019-07-10 Completed Universit y of Vaccine Quad .5 mL 00:00:00 [facility] 6+ MO [place] Vital Signs Vital Name Observation Time Observation Value Comments Source Systolic blood 2021-05-27 15:19:00 131 mm[Hg] Univer sity of pressure [facility] Diastolic blood 2021-05-27 15:19:00 83 mm[Hg] Unive rsity of pressure [facility] Heart rate 2021-05-27 15:19:00 82 /min Universi ty of [facility] Body temperature 2021-05-27 14:40:00 36.56 [place] Univ ersity of [facility] Respiratory rate 2021-05-27 14:40:00 18 /min [facility] Body height 2021-05-27 14:40:00 167.6 cm [facility] Body weight 2021-05-27 14:40:00 125.193 kg [facility] BMI 2021-05-27 14:40:00 44.55 kg/m2 [facility] Procedures Procedure Date / Time Performed Performing Clinician Sourc e FLU VACC ([id number]), 2021-05-27 14:57:50 Heidi Roman [facility] 2-64 YRS, .5ML, IM, Medical Bran ch QUAD (FLUCELVAX) Encounters Start End Encounter Admission Attending Care Care Encounter Source Date/Time Date/Time Type Type Clinicians Facility Department ID 2021-07-16 2021-07-16 Outpatient KAYE DRUMMOND [facility] [id number] Univers 08:15:00 08:15:00 [id number] [facility] 2021-07-07 2021-07-07 Outpatient DREW JORDAN [facility] [id number] Univers 10:30:00 10:30:00 [id number] [facility] 2021-07-07 2021-07-07 Outpatient DREW JORDAN [facility] [id number] Univers 10:30:00 10:30:00 [facility] 2021-05-27 2021-05-27 [id number] Univers 08:30:00 09:16:00 Visit Heidi HAYWOOD [id number] [facility] [id number] [place] PROFESSIO [phone] Ut dical NAL [address] Branch BUILDING 2021-05-27 2021-05-27 Outpatient R ELLIS [facility] [id number] Univers 08:30:00 09:16:00 HEIDI chavira [facility] Results This patient has no known results.
[2021-07-10] MEDS ORDERED: ONDANSETRON 4 MG (ODT) TAB PO PRN (15:09)
[2021-07-10] MEDS ORDERED: D50W 25 GM/50 ML SYRINGE IV PRN ×2 (15:26→16:29)
[2021-07-10] MEDS ORDERED: GLUCAGON 1 MG/VIAL IM PRN ×2 (15:26→16:29)
[2021-07-10] MEDS ORDERED: D10W 250 ML IV PRN (15:37)
[2021-07-10] MEDS ORDERED: D10W 125 ML IV PRN (16:00)
[2021-07-10] MEDS: METOPROLOL XL 50 MG TAB PO SCH (17:28)
[2021-07-10] MEDS: METFORMIN ER 500 MG TAB PO SCH (17:28)
[2021-07-10] MEDS: INSULIN -REGULAR HUMAN 50 UNIT/0.5 ML ML SQ SCH ×2 (17:32→20:36)
[2021-07-10] MEDS: ATORVASTATIN 40 MG TAB PO SCH (20:35)
[2021-07-10] MEDS: MECLIZINE HCL 12.5 MG TAB PO SCH (20:35)
[2021-07-10] MEDS: NPH (HUMAN) 100 UNITS/ML INSULIN SQ SCH (21:23)
[2021-07-10] MEDS ORDERED: ACETAMINOPHEN 500 MG TAB PO PRN (22:37)
[2021-07-11] MEDS: METOPROLOL XL 50 MG TAB PO SCH ×2 (05:07→17:27)
[2021-07-11 07:09] LABS: Absolute Lymphocytes (CBC) 4.2 K/uL (0.7-4.9); Hematocrit 37.7 % (36.0-45.0)
[2021-07-11] MEDS: ENOXAPARIN 40 MG/0.4 ML SQ SCH (07:28)
[2021-07-11] MEDS: INSULIN -REGULAR HUMAN 50 UNIT/0.5 ML ML SQ SCH ×4 (07:30→20:53)
[2021-07-11 07:33] LABS: Albumin 2.9 g/dL (3.4-5.0); BUN Blood Urea Nitrogen 11 mg/dL (7-18); Bicarbonate 26 mmol/L (21-32); Glucose Level 157 mg/dL (74-106); Potassium 4.2 mmol/L (3.5-5.1); Prealbumin 17.9 mg/dL (20-40); Sodium Level 134 mmol/L (136-145)
[2021-07-11] MEDS: FARXIGA 10 MG PO SCH (08:00)
[2021-07-11] MEDS: NPH (HUMAN) 100 UNITS/ML INSULIN SQ SCH ×2 (08:17→20:52)
[2021-07-11] MEDS: ENALAPRIL 2.5 MG TAB PO SCH (08:19)
[2021-07-11] MEDS: BUMETANIDE 1 MG TABLET PO SCH (08:20)
[2021-07-11] MEDS: CALCITROL 0.25 MCG CAP PO SCH (08:21)
[2021-07-11] MEDS: ASPIRIN EC 81 MG TAB PO SCH (08:21)
[2021-07-11] MEDS: MECLIZINE HCL 12.5 MG TAB PO SCH ×3 (08:21→20:53)
[2021-07-11] MEDS: SPIRONOLACTONE 25 MG TABLET PO SCH (08:21)
[2021-07-11] MEDS: METFORMIN ER 500 MG TAB PO SCH ×2 (08:21→17:28)
[2021-07-11] MEDS: CLOPIDOGREL 75 MG TABLET PO SCH (08:22)
--- NOTE | 2021-07-11 09:52 | P.RH.PN ---
Estimated Length of Stay: 14 Expected Discharge Date: 07/23/21 Discharge Disposition Plan: Home Family Support: Yes [facility] Goal: Mobility, Transfers, Self Care Vital Signs: Last Vital Signs Temp 97.1 F 07/11/21 08:20 Pulse 82 07/11/21 08:21 Resp 86 H 07/11/21 08:20 BP 140/80 07/11/21 08:21 Pulse Ox 100 07/11/21 08:20 Laboratory: Laboratory Last Values WBC 11.00 K/uL (4.3-10.9) H 07/11/21 06:50 RBC 4.30 M/uL (3.86-4.86) 07/11/21 06:50 Hgb 12.4 g/dL (12.0-15.0) 07/11/21 06:50 Hct 37.7 % (36.0-45.0) 07/11/21 06:50 MCV 87.7 fL (80-100) 07/11/21 06:50 MCH 28.9 pg (27.0-35.0) 07/11/21 06:50 MCHC 32.9 g/dL (32.0-36.0) 07/11/21 06:50 RDW 13.4 % (12.1-15.2) 07/11/21 06:50 Plt Count 413 K/uL (152-406) H 07/11/21 06:50 MPV 8.0 fL (7.6-11.3) 07/11/21 06:50 Neutrophils % 52.2 % (41.7-73.7) 07/11/21 06:50 Lymphocytes % 38.0 % (15.3-44.8) 07/11/21 06:50 Monocytes % 7.2 % (3.3-12.3) 07/11/21 06:50 Eosinophils % 1.7 % (0-4.4) 07/11/21 06:50 Basophils % 0.9 % (0-1.3) 07/11/21 06:50 Absolute Neutrophils 5.7 K/uL (1.8-8.0) 07/11/21 06:50 Absolute Lymphocytes 4.2 K/uL (0.7-4.9) 07/11/21 06:50 Absolute Monocytes 0.8 K/uL (0.1-1.3) 07/11/21 06:50 Absolute Eosinophils 0.2 K/uL (0-0.5) 07/11/21 06:50 Absolute Basophils 0.1 K/uL (0-0.5) 07/11/21 06:50 Sodium 134 mmol/L (136-145) L 07/11/21 06:50 Potassium 4.2 mmol/L (3.5-5.1) 07/11/21 06:50 Chloride 103 mmol/L (98-107) 07/11/21 06:50 Carbon Dioxide 26 mmol/L (21-32) 07/11/21 06:50 BUN 11 mg/dL (7-18) 07/11/21 06:50 Creatinine 0.77 mg/dL (0.55-1.3) 07/11/21 06:50 Estimated GFR > 90 mL/min (=/>90) 07/11/21 06:50 Glucose 157 mg/dL (74-106) H 07/11/21 06:50 POC Glucose 136 mg/dL (65-120) H 07/11/21 07:47 Calcium 8.6 mg/dL (8.5-10.1) 07/11/21 06:50 Magnesium 2.0 mg/dL (1.8-2.4) 07/11/21 06:50 Albumin 2.9 g/dL (3.4-5.0) L 07/11/21 06:50 Prealbumin 17.9 mg/dL (20-40) L 07/11/21 06:50 Weight: 282 lb Wound Present: No Closed Surgical Incision Present: No Negative Pressure Wound Therapy Present: No Physician Update: Walked 30' with moderate assistance. She started vomiting after therapy. Labs were reviewed and are stable. Summary: Patient's care plan and retirement goals have been reviewed and revised as necessary. Please see the Rehabilitation Signature page for all necessary signatures.
[2021-07-11 14:57] LABS: Urine Appearance CLEAR (Clear); Urine Bilirubin NEGATIVE (Negative); Urine Blood NEGATIVE (Negative); Urine Color YELLOW (Yellow); Urine Glucose NEGATIVE (Negative); Urine Protein NEGATIVE (Negative); Urine Urobilinogen 0.2 mg/dL (0.2-1.0)
--- NOTE | 2021-07-11 15:20 | R.HP ---
HISTORY AND PHYSICAL FACILITY: [facility] ENCOUNTER DATE AND TIME: 07/11/2021 15:10 (SENIOR TECHNICAL WRITER) MR#: [id number] NAME TOYA JAMES ADDRESS: [address] [place] [address] CITY: [place]IP [id number] PHONE: DATE OF : 1975 AGE: 46 SSN# [id number] GENDER: Female MARITAL STATUS Single (Never ) PRE-HOSPITAL LIVING SETTING 01 - Home (private home/apt. board/care, assisted living, prison, transitional living) PRE-HOSPITAL LIVING WITH Family/Relatives ENCOUNTER PHYSICIAN: Dr. Kemal Conway M.D. REFERRING DOCTOR: MATILDE ISRAEL MD DATE OF ADMISSION: 07/10/2021 12:33 (SENIOR TECHNICAL WRITER) REFERRING FACILITY [facility] HOME TYPE AND DETAILS: Type of home: single family house # of steps to enter the residence: 0 # of steps within the residence: 0 # of levels in the residence: 1 ONSET DATE: 07/06/2021 PRIMARY DIAGNOSIS-RELATED SURGERIES: N/A HISTORY OF PRESENT ILLNESS (HPI): Pt. is a 46 yo Right-handed female. On 07/06/2021 Pt. presented to [facility] with sudden onset of left-side weakness. On 07/06/2021 she was admitted to [facility] with diagnosis CVA. Her impairment category is CVA. Pre-morbidly, Pt. was independent/mod-I in Locomotion, Social Cognition, Safety Awareness, and Balanc e; and she had good Transfers Control, Sphincter Control, Self-Care, Communication, and Endurance. Currently, she has deficits of Locomotion, Safety Awareness, Social Cognition, Balance, Sphincter Con trol, Self-Care, Endurance, Communication, and Transfers Control. Pt. is now referred to [facility] for acute in-patient rehabilitation in order to maximize patient's functional independence in activities of daily living, strength, ROM, and mobi lity. Patient has realistic goal of being discharged at assistance level 7-Ind to reside at Home with Fami ly/Relatives. MEDICATION ALLERGIES: No Known Drug Allergies (NKDA) ENVIRONMENTAL ALLERGIES: - Substance Allergies None Known - Other Allergies None Known PAST MEDICAL HISTORY: HTN DIABETES MELLITUS Vomiting (R11.1) PAST SURGICAL HISTORY: Right eye orbital fracture with plate placement. SOCIAL HISTORY: - Home Living Family/Relatives REVIEW OF SYSTEMS: - Gen No Chills Fatigue No Fever - Eyes No Double Vision No itchiness - ENMT No Difficulty Swallowing - CVS No Chest Discomfort No Chest Pain Fatigue No Weight Gain - Resp No Cough No Shortness of Breath - GI Continent No Abdominal Pain No Constipation No Diarrhea - Continent No Kidney Pain No Painful Urination No Urinary Urgency - MSK No Joint Pain Muscle Cramps Stiffness - Skin No Itching No Rash No Suspicious Lesions - Neuro Coordination Difficulty No Difficulty with Concentration No Memory Loss No Seizures Weakness - Psych No Anxiety No Depression No HIV Exposure No Persistent Infections No Seasonal Allergies - Endo No Cold/Heat Intolerance No Excessive Hunger No Excessive Thirst No Excessive Urination PHYSICAL EXAM - Gen Alert and awake Lying in bed No apparent distress Oriented to: person, time, and place - Skin No breakdown Normacephalic - Eyes No abnormalities - ENMT No abnormalities - Neck No abnormalities - CVS RRR - Chest No abnormalities - Resp Clear to auscultation - Abd Soft - GI Soft Deferred - No abnormalities - Ext Mild bilateral lower extremity edema. - MSK Muscle Weakness - Neuro Ataxic gait, lower and upper extremity dysmetria, left sided weakness. - Psych No abnormalities VITAL SIGNS Temperature: 97.1 F SBP/DBP: 120/78 Pulse: 82 Resp: 16 NURSING: - Shower allowing shower - Bladder care per protocol - Skin care per protocol PRECAUTIONS: - Fall Precaution LWeakness ACTIVITIES OOB only with supervision QI SCORES: - Self-Care A. Eating 03-Partial/moderate assistance B. Oral hygiene 03-Partial/moderate assistance C. Toileting hygiene 03-Partial/moderate assistance E. Shower/bathe self 03-Partial/moderate assistance F. Upper body dressing 03-Partial/moderate assistance G. Lower body dressing 03-Partial/moderate assistance H. Putting on/taking off footwear 88-Not attempted due to medical condition or safety concerns - Mobility A. Roll left and right 03-Partial/moderate assistance B. Sit to lying 03-Partial/moderate assistance C. Lying to sitting on side of bed 03-Partial/moderate assistance D. Sit to stand 03-Partial/moderate assistance E. Chair/vir-ta-uxxut transfer 03-Partial/moderate assistance F. Toilet transfer 03-Partial/moderate assistance G. Car transfer 88-Not attempted due to medical condition or safety concerns I. Walk 10 feet 03-Partial/moderate assistance J. Walk 50 feet with two turns 88-Not attempted due to medical condition or safety concerns K. Walk 150 feet 88-Not attempted due to medical condition or safety concerns L. Walking 10 feet on uneven surfaces 88-Not attempted due to medical condition or safety concerns M. 1 step (curb) 88-Not attempted due to medical condition or safety concerns N. 4 steps 88-Not attempted due to medical condition or safety concerns O. 12 steps 88-Not attempted due to medical condition or safety concerns P. Picking up object 88-Not attempted due to medical condition or safety concerns R. Wheel 50 feet with two turns 88-Not attempted due to medical condition or safety concerns S. Wheel 150 feet 88-Not attempted due to medical condition or safety concerns - Bladder and Bowel Bladder continence Bowel continence - Endurance Fair - Balance Fair - Safety Awareness Fair CURRENT FUNC. DEFICITS: Self-Care, Mobility, Endurance, Balance, and Safety Awareness MEDICATIONS: - Other See attached MAR (Medication Administration Record) ASSESSMENT: Pt. is a 46 yo Right-handed female.On 07/06/2021 Pt. presented to [facility] with sudden onset of left-side weakness.On 07/06/2021 she was admitted to [facility] with diagnosis CVA.Her impairment category is CVA.Pre-morbidly, Pt. was independent/mod-I in Locomotion, Social Cog nition, Safety Awareness, and Balance; and she had good Transfers Control, Sphincter Control, Self-Ca re, Communication, and Endurance.Currently, she has deficits of Locomotion, Safety Awareness, Social Cognition, Balance, Sphincter Control, Self-Care, Endurance, Communication, and Transfers Control.Pt. is now referred to [facility] for acute in-patient rehabilitation in order to maximize patient's functional independence in activities of daily living, strength, ROM, and mobilit y.- Rehab Goal Patient has realistic goal of being discharged at assistance level 7-Ind to reside at Home with Fami ly/Relatives. for Dementia, TBI, Stroke, or others - Physical Therapy Gait dysfunction - to improve, our physical therapists will perform initial evaluation of pt's status upon admission and devise an individualized program for Gait Training, and Wheel Chair mobility Inability to transfer - to improve, our physical therapists will perform initial evaluation of pt's s tatus upon admission and devise an individualized program for Bed mobility Need for home safety evaluation - to improve, our physical therapists will perform initial evaluation of pt's status upon admission and devise an individualized program for Home Evaluation Need in caregiver upon discharge - to improve, our physical therapists will perform initial evaluatio n of pt's status upon admission and devise an individualized program for Caregiver Training New precaution - to improve, our physical therapists will perform initial evaluation of pt's status u sujey admission and devise an individualized program for Patient precaution education Edema - to improve, our physical therapists will perform initial evaluation of pt's status upon admi ssion and devise an individualized program for Elevation Training, and Lymphedema Therapy Poor balance - to improve, our physical therapists will perform initial evaluation of pt's status upo n admission and devise an individualized program for Balance Training Poor endurance - to improve, our physical therapists will perform initial evaluation of pt's status u sujey admission and devise an individualized program for Endurance Training Weakness - to improve, our physical therapists will perform initial evaluation of pt's status upon ad mission and devise an individualized program for Aquatic Therapy, Neuromuscular Reeducation, and Stre ngthening Achieving independence - to improve, our physical therapists will perform initial evaluation of pt's status upon admission and devise an individualized program for Community Reintegration Activities - Occupational Therapy ADL deficits - to improve, our occupation therapists will perform initial evaluation of pt's status u sujey admission and devise an individualized program for Bathing, Bed mobility, Community Reintegration , Cooking, Dressing, Eating, Fine Motor Skills, Grooming, Homemaking, Kitchen Mobility, Laundry, Rabia ent Education, Safety Awareness, Splinting - Positioning, Transfers(Toilet, Tub, Shower), and Wheel C hair Management Cognitive deficits - to improve, our occupation therapists will perform initial evaluation of pt's st atus upon admission and devise an individualized program for Cognition - orientation Need for zoo caretaker - to improve, our occupation therapists will perform initial evaluation of pt's s tatus upon admission and devise an individualized program for Caregiver Training Weakness - to improve, our occupation therapists will perform initial evaluation of pt's status upon admission and devise an individualized program for Aquatic Therapy, Balance, Endurance, UE ROM, and U E strengthening MEDICAL PLAN: - Diet Type Start Regular - Diet - Liquid Texture Start Regular - Tube Feed Start N/A - Bladder care per protocol - Weight Bearing Precaution WBAT left LE - Fall Precaution LWeakness Bed alarm TABS alarm Wheel chair alarm - Skin care per protocol - Other See attached MAR (Medication Administration Record) - Diet - Solid Texture Regular - Shower shower DISCHARGE PLAN: - Estimated Length of Stay (days) 17. - Consensus on plan Discharge plan has been discussed with primary caregiver. Patient/Family is in agreement with the inna n. Primary caregiver is in agreement with the plan. - Patient/Family Goals Return home independently. - Planned Living Setting Upon Discharge Home, to live with Family/Relatives. Transitional Living. SIGNATURE PANEL: (SENIOR TECHNICAL WRITER)
--- NOTE | 2021-07-11 15:22 | PAPE ---
POST ADMISSION PHYSICIAN EVALUATION PATIENT: [facility] MR# [id number] REFERRING DOCTOR MATILDE ISRAEL MD EVALUATION DATE AND TIME 07/11/2021 15:20 (SHEET METAL HELPER) NAME TOYA JAMES DATE OF 1975 AGE 46 PHONE N# [id number] GENDER female EVALUATING PHYSICIAN Dr. Kemal Conway M.D. ADMISSION DIAGNOSIS: ACUTE CVA ONSET DATE 07/06/2021 POST-ADMISSION FUNCTIONAL/MEDICAL STATUS: - Bladder Same accident frequency: 7-Ind - No accidents in the past 7 days - Bowel Same accident frequency: 7-Ind - No accidents in the past 7 days - Walking Same score based on distance walked: 0(N/A) Same score based on distance walked: 1(<=50ft) - Wheelchair Same score based on distance traveled: 0(N/A) STATUS CHANGE EVALUATION: No change in Functional or Medical Status is identified compared with Pre-Admission screening. PATIENT NEEDS CLOSE MEDICAL SUPERVISION BY A REHABILITATION PHYSICIAN FOR: Coordination of Treatment Team PATIENT REQUIRES 24X7 REHAB NURSING FOR MEDICAL AND FUNCTIONAL MGT. OF THE FOLLOWING DEFICITS: Disease Management Medication Management Patient requires 24x7 Rehabilitation Nursing for: Pain Issues, Identifying and preventing risk factor s, Monitoring and reporting current medical conditions, Assisting with ambulation and transfer, Álvaro ting with all ADL-s, Teaching patients about disease process and medications, Family teaching, Provid ing safe environment, Bowel and Bladder Issues, Skin Integrity, and Medication Management Patient/Family Education Providing Safe Environment Skin Integrity PATIENT REQUIRES INTENSIVE, COORDINATED INTERDISCIPLINARY APPROACH TO REHAB: Arranging Home Equipment/Services Discharge Planning Family Intervention/Training Patient needs Dietary and Nutrition Services for: Adequate Nutrition, Nutritional Supplements, and Nu tritional Education Patient needs Die Cast Engineer and/or Case Management for: Discharge Planning, Arranging Home Equipmen t or Services, and Family Interventions Die Cast Engineer/Case Management LIST OF IDENTIFIED AND POTENTIAL PROBLEMS: Alteration in leisure activities Bladder, Incontinence Bowel, Incontinence Falls, Actual or Potential Infection, Actual or Potential Mobility Impaired Pain, Alteration in Comfort Self Care Deficit Skin Integrity, Actual or Potential Urinary Tract Infection (UTI), Actual or Potential RISK FOR COMPLICATIONS - CVA pt's blood pressures have been inconsistent and require monitoring and medication management as inidi cated by physician. - HYPERTENSION WEAKNESS. - DIABETIC COMPLICATIONS Regular monitoring and management of blood glucose levels. - NAUSEA vomiting after dinner. INTERVENTIONS - DIABETES Monitor blood glucose levels and administer medication as indicated by Physician. PATIENT COULD BE AT RISK FOR COMPLICATIONS FROM ADVERSE MEDICAL CONDITIONS DUE TO HIS/HER COMORBIDITI ES AND THE RIGORS OF THE INTENSIVE REHABILLITATION PROGRAM. METHODS OR INTERVENTIONS TO AVOID COMPLIC ATIONS INCLUDE: - Bleeding Stroke patients assessed for lethargy or change in status. - Infection Clinical staff to assess and manage the signs and symptoms of infection including fever, redness, war mth, etc. - Urinary Tract Infection - Aspiration Clinical staff will assess and manage coughing, drooling, congestion. - Falls Patient will be evaluated for Fall Precautions and will be placed on Fall Precautions as indicated pe r protocol. - Skin Breakdown Nursing will assess skin daily using assessment tool and will place on Skin Breakdown Precautions as indicated per protocol. - Pain Clinical staff may employ non-medication methods such as massage, distraction, decrease stimulus, etc . as needed. Clinical staff will assess patient's pain level every shift per protocol to assess and e nsure pain management effectiveness. Medications will be given and the pain level re-assessed. PRELIMINARY PLAN OF CARE: - Physical Therapy Patient needs Physical Therapy for a daily minimum of 1.5 hours at least 5 out of 7 days, to improve: Mobility, Strengthening, Transfers, Stretching, ROM, Endurance, Ability to manage stairs, Gait, and Balance. - Speech Therapy Patient needs Speech Therapy for a daily minimum of 0.5 hours at least 5 out of 7 days, to improve: S wallowing, Cognition, Language Skills, and Compensatory Strategies. - Rehabilitation Nursing Patient requires 24x7 Rehabilitation Nursing for: Pain Issues, Identifying and preventing risk factor s, Monitoring and reporting current medical conditions, Assisting with ambulation and transfer, Álvaro ting with all ADL-s, Teaching patients about disease process and medications, Family teaching, Provid ing safe environment, Bowel and Bladder Issues, Skin Integrity, and Medication Management. Patient needs Die Cast Engineer and/or Case Management for: Discharge Planning, Arranging Home Equipmen t or Services, and Family Interventions. - Dietary and Nutrition Services Patient needs Dietary and Nutrition Services for: Adequate Nutrition, Nutritional Supplements, and Nu tritional Education. - Occupational Therapy Patient needs Occupational Therapy for a daily minimum of 1.5 hours at least 5 out of 7 days, to impr ove Activities of Daily Living, including: Eating, Grooming, Bathing, Dressing, Toileting, Toilet Tra nsfers, Community Reintegration, Higher functional activities, Adaptive Equipment, Splinting, Househo ld Tasks, and Other activities as determined. QI SCORES: - Self-Care A. Eating 03-Partial/moderate assistance B. Oral hygiene 03-Partial/moderate assistance C. Toileting hygiene 03-Partial/moderate assistance E. Shower/bathe self 03-Partial/moderate assistance F. Upper body dressing 03-Partial/moderate assistance G. Lower body dressing 03-Partial/moderate assistance H. Putting on/taking off footwear 88-Not attempted due to medical condition or safety concerns - Mobility A. Roll left and right 03-Partial/moderate assistance B. Sit to lying 03-Partial/moderate assistance C. Lying to sitting on side of bed 03-Partial/moderate assistance D. Sit to stand 03-Partial/moderate assistance E. Chair/[id number]-cn-[id number] transfer 03-Partial/moderate assistance F. Toilet transfer 03-Partial/moderate assistance G. Car transfer 88-Not attempted due to medical condition or safety concerns I. Walk 10 feet 03-Partial/moderate assistance J. Walk 50 feet with two turns 88-Not attempted due to medical condition or safety concerns K. Walk 150 feet 88-Not attempted due to medical condition or safety concerns L. Walking 10 feet on uneven surfaces 88-Not attempted due to medical condition or safety concerns M. 1 step (curb) 88-Not attempted due to medical condition or safety concerns N. 4 steps 88-Not attempted due to medical condition or safety concerns O. 12 steps 88-Not attempted due to medical condition or safety concerns P. Picking up object 88-Not attempted due to medical condition or safety concerns R. Wheel 50 feet with two turns 88-Not attempted due to medical condition or safety concerns S. Wheel 150 feet 88-Not attempted due to medical condition or safety concerns - Bladder and Bowel Bladder continence Bowel continence - Endurance Fair - Balance Fair - Safety Awareness Fair POTENTIAL FUNCTIONAL GOALS FOR PATIENT TO ACHIEVE BY DISCHARGE: - Safety Precaution Patient will remain free from falls or injury at time of discharge. - Bed Mobility Patient will perform bed mobility at 4-Erwin level of assistance. - Transfers Patient will complete transfers from bed to chair at 4-Erwin level of assistance. - Mobility Patient will ambulate 150 ft with 4-Erwin level of assistance with RW. PATIENT REHAB POTENTIAL Bg JAMES is able and expected to receive 3 hours of individualized therapy daily on at least 5 of janiya ry 7 days Bg JAMES's prognosis for significant practical improvement within a reasonable period of time appears Good Expected level of measurable improvement will be of a practical value to Bg JAMES's functional capaci ty or adaptations to impairments Has a viable Discharge Plan Medically appropriate; condition is sufficiently stable to participate in intensive rehab program DISCHARGE PLAN: - Estimated Length of Stay (days) 17. - Consensus on plan Discharge plan has been discussed with primary caregiver. Patient/Family is in agreement with the inna n. Primary caregiver is in agreement with the plan. - Patient/Family Goals Return home independently. - Planned Living Setting Upon Discharge Home, to live with Family/Relatives. Transitional Living. CONCLUSION ON REHABILITATION NECESSITY: I have evaluated patient's pre-admission functional status and, comparing it to the patient's post-ad mission functional status now, I conclude that the pre-admission assessment was accurate. Patient's c ondition on admission supports the medical necessity of admission to [facility]. It is safe to proceed with patient's therapy program. SIGNATURE PANEL: (SHEET METAL HELPER)
[2021-07-11 15:25] LABS: Urine Bacteria <20 /HPF (<20); Urine RBC NONE SEEN /HPF (NONE SEEN)
[2021-07-11] MEDS: ATORVASTATIN 40 MG TAB PO SCH (20:53)
[2021-07-12] MEDS: METOPROLOL XL 50 MG TAB PO SCH ×2 (05:13→16:51)
[2021-07-12 05:32] VITALS: BMI 45.1
[2021-07-12] MEDS: ENOXAPARIN 40 MG/0.4 ML SQ SCH (07:01)
[2021-07-12] MEDS: INSULIN -REGULAR HUMAN 50 UNIT/0.5 ML ML SQ SCH ×4 (07:30→20:02)
[2021-07-12] MEDS: FARXIGA 10 MG PO SCH (08:00)
[2021-07-12] MEDS: NPH (HUMAN) 100 UNITS/ML INSULIN SQ SCH ×2 (08:15→20:01)
[2021-07-12] MEDS: ENALAPRIL 2.5 MG TAB PO SCH (08:16)
[2021-07-12] MEDS: ASPIRIN EC 81 MG TAB PO SCH (08:17)
[2021-07-12] MEDS: METFORMIN ER 500 MG TAB PO SCH ×2 (08:17→16:47)
[2021-07-12] MEDS: MECLIZINE HCL 12.5 MG TAB PO SCH ×3 (08:17→20:01)
[2021-07-12] MEDS: CALCITROL 0.25 MCG CAP PO SCH (08:17)
[2021-07-12] MEDS: SPIRONOLACTONE 25 MG TABLET PO SCH (08:18)
[2021-07-12] MEDS: BUMETANIDE 1 MG TABLET PO SCH (08:18)
[2021-07-12] MEDS: CLOPIDOGREL 75 MG TABLET PO SCH (08:19)
[2021-07-12] MEDS: ATORVASTATIN 40 MG TAB PO SCH (20:01)
[2021-07-13] MEDS: METOPROLOL XL 50 MG TAB PO SCH (05:16)
[2021-07-13] MEDS: ENOXAPARIN 40 MG/0.4 ML SQ SCH (07:04)
[2021-07-13] MEDS: INSULIN -REGULAR HUMAN 50 UNIT/0.5 ML ML SQ SCH (07:30)
[2021-07-13 07:41] VITALS: BP 132/77; TEMP 96.8
[2021-07-13] MEDS: FARXIGA 10 MG PO SCH (08:00)
[2021-07-13] MEDS: NPH (HUMAN) 100 UNITS/ML INSULIN SQ SCH (08:09)
[2021-07-13] MEDS: BUMETANIDE 1 MG TABLET PO SCH (08:12)
[2021-07-13] MEDS: ASPIRIN EC 81 MG TAB PO SCH (08:12)
[2021-07-13] MEDS: CALCITROL 0.25 MCG CAP PO SCH (08:13)
[2021-07-13] MEDS: SPIRONOLACTONE 25 MG TABLET PO SCH (08:13)
[2021-07-13] MEDS: METFORMIN ER 500 MG TAB PO SCH (08:13)
[2021-07-13] MEDS: MECLIZINE HCL 12.5 MG TAB PO SCH (08:13)
[2021-07-13] MEDS: ENALAPRIL 2.5 MG TAB PO SCH (08:13)
[2021-07-13] MEDS: CLOPIDOGREL 75 MG TABLET PO SCH (08:15)
--- NOTE | 2021-07-14 18:01 | R.DS ---
DISCHARGE SUMMARY FACILITY [facility] MR# [id number] NAME TOYA JAMES ADDRESS [address] [place] [address] [address] [id number] PHONE DATE OF 1975 AGE 46 SSN# [id number] GENDER Female MARITAL STATUS Single (Never ) ENCOUNTER PHYSICIAN Dr. Kemal Conway M.D. REFERRING DOCTOR MATILDE ISRAEL MD REFERRING FACILITY [facility] DISCHARGE DIAGNOSIS: - Stroke 01 - Left Body (Right Brain) (01.1) ACUTE CVA. 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 NURSING: - Shower allowing shower - Bladder care per protocol - Skin care per protocol PRECAUTIONS: - Fall Precaution LWeakness ACTIVITIES OOB only with supervision THERAPIES: - Dietary and Nutrition Adequate Nutrition Nutritional Education Nutritional Supplements Evaluate and Treat - Occupational Therapy Cognitive Retraining Patient needs Occupational Therapy for a daily minimum of 1.5 hours at least 5 out of 7 days, to impr ove Activities of Daily Living, including: Eating, Grooming, Bathing, Dressing, Toileting, Toilet Tra nsfers, Community Reintegration, Higher functional activities, Adaptive Equipment, Splinting, Househo ld Tasks, and Other activities as determined Transfer Training ADL Training Evaluate and Treat Patient/Family Education Visual Perceptual Training Household Tasks Adaptive Equipment UE Strengthening - Speech Therapy Cognitive Training Expressive Language Skills Patient needs Speech Therapy for a daily minimum of 1.5 hours at least 5 out of 7 days, to improve: S wallowing, Cognition, Language Skills, and Compensatory Strategies Receptive Language Skills Memory Strategies Speech Intelligibility Training Evaluate and Treat - Physical Therapy Patient needs Physical Therapy for a daily minimum of 1.5 hours at least 5 out of 7 days, to improve: Mobility, Strengthening, Transfers, Stretching, ROM, Endurance, Ability to manage stairs, Gait, and Balance Mobility Training Gait Training Safety Awareness Balance Training Transfer Training Evaluate and Treat Patient/Family Education HISTORY OF PRESENT ILLNESS: Pt. is a 46 yo Right-handed female.On 07/06/2021 Pt. presented to [facility] with sudden onset of left-side weakness.On 07/06/2021 she was admitted to [facility] with diagnosis CVA.Her impairment category is CVA.Pre-morbidly, Pt. was independent/mod-I in Locomotion, Social Cog nition, Safety Awareness, and Balance; and she had good Transfers Control, Sphincter Control, Self-Ca re, Communication, and Endurance.Currently, she has deficits of Locomotion, Safety Awareness, Social Cognition, Balance, Sphincter Control, Self-Care, Endurance, Communication, and Transfers Control.Pt. is now referred to [facility] for acute in-patient rehabilitation in order to maximize patient's functional independence in activities of daily living, strength, ROM, and mobilit y.- Rehab Goal Patient has realistic goal of being discharged at assistance level 7-Ind to reside at Home with Fami ly/Relatives. DIET - LIQUID TEXTURE: On 07/09/2021 Pt was upgraded to Regular Diet - Liquid Texture. DIET - SOLID TEXTURE: On 07/09/2021 Pt was upgraded to Regular Diet - Solid Texture. DIET TYPE: On 07/09/2021 Pt was upgraded to Regular Diet Type. FALL PRECAUTION: On 07/09/2021 the following precautions were added for the patient: Fall Precaution - LWeakness. On 07/11/2021 the following precautions were added for the patient: Fall Precaution - Bed alarm, Fal l Precaution - TABS alarm, Fall Precaution - Wheel chair alarm, and Fall Precaution - LWeakness. The following precautions were removed for the patient: Fall Precaution - LWeakness, Fall Precaution - Bed alarm, Fall Precaution - TABS alarm, Fall Precaution - Wheel chair alarm, and Fall Precautio n - LWeakness. On 07/11/2021 the following precautions were added for the patient: Weight Bearing Precaution - WBAT left LE. TUBE FEED: On 07/09/2021 Pt was changed to N/A Tube Feed. WEIGHT BEARING PRECAUTION: The patient elected to leave against medical advice. She was asked to complete her therapy by the [facility] staff, but she refused. The risk of her medical condition worsening was told to the patient. sadaf will follow-up with her primary care physician. DISCHARGE PHYSICAL EXAM - Gen Alert and awake Lying in bed No apparent distress Oriented to: person, time, and place - Skin No breakdown Normacephalic - Eyes No abnormalities - ENMT No abnormalities - Neck No abnormalities - CVS RRR - Chest No abnormalities - Resp Clear to auscultation - Abd Soft - GI Soft Deferred - No abnormalities - Ext Mild bilateral lower extremity edema. - MSK Muscle Weakness - Neuro Ataxic gait, lower and upper extremity dysmetria, left sided weakness. - Psych No abnormalities FUNCTIONAL STATUS: - Self-Care A. Eating 7-Ind 7-Ind B. Grooming 7-Ind 7-Ind C. Bathing 5-sup 5-sup D. Dressing - Upper 5-sup 5-sup E. Dressing - Lower 5-sup 5-sup F. Toileting 6-Meri 6-Meri - Sphincter Control G. Bladder control 7-Ind 7-Ind H. Bowel control 7-Ind 7-Ind - Transfers Control I. Bed/Chair/Wheelchair 5-sup 5-sup J. Toilet 5-sup 5-sup K. Tub/Shower 5-sup 5-sup - Locomotion L. Walk/Wheelchair (B) 5-sup 5-sup M. Stairs 3-modA 3-modA - Communication N. Comprehension (B) 6-Meri 6-Meri O. Expression (B) 6-Meri 6-Meri - Social Cognition P. Social Interaction 6-Meri 6-Meri Q. Problem Solving 6-Meri 6-Meri R. Memory 7-Ind 7-Ind - Endurance Good - Balance Fair - Safety Awareness Fair QI SCORES: - Self-Care A. Eating 03-Partial/moderate assistance B. Oral hygiene 03-Partial/moderate assistance C. Toileting hygiene 03-Partial/moderate assistance E. Shower/bathe self 03-Partial/moderate assistance F. Upper body dressing 03-Partial/moderate assistance G. Lower body dressing 03-Partial/moderate assistance H. Putting on/taking off footwear 88-Not attempted due to medical condition or safety concerns - Mobility A. Roll left and right 03-Partial/moderate assistance B. Sit to lying 03-Partial/moderate assistance C. Lying to sitting on side of bed 03-Partial/moderate assistance D. Sit to stand 03-Partial/moderate assistance E. Chair/rap-ax-lzdgg transfer 03-Partial/moderate assistance F. Toilet transfer 03-Partial/moderate assistance G. Car transfer 88-Not attempted due to medical condition or safety concerns I. Walk 10 feet 03-Partial/moderate assistance J. Walk 50 feet with two turns 88-Not attempted due to medical condition or safety concerns K. Walk 150 feet 88-Not attempted due to medical condition or safety concerns L. Walking 10 feet on uneven surfaces 88-Not attempted due to medical condition or safety concerns M. 1 step (curb) 88-Not attempted due to medical condition or safety concerns N. 4 steps 88-Not attempted due to medical condition or safety concerns O. 12 steps 88-Not attempted due to medical condition or safety concerns P. Picking up object 88-Not attempted due to medical condition or safety concerns R. Wheel 50 feet with two turns 88-Not attempted due to medical condition or safety concerns S. Wheel 150 feet 88-Not attempted due to medical condition or safety concerns - Bladder and Bowel Bladder continence Bowel continence - Endurance Fair - Balance Fair - Safety Awareness Fair DISCHARGE PLAN, FOLLOW UP CARE PROVISIONS: - Estimated Length of Stay (days) 17. - Consensus on plan Discharge plan has been discussed with primary caregiver. Patient/Family is in agreement with the inna n. Primary caregiver is in agreement with the plan. - Patient/Family Goals Return home independently. - Planned Living Setting Upon Discharge Home, to live with Family/Relatives. Transitional Living. SIGNATURE PANEL: (V GROOVE CUTTER)
[2021-07-17] MEDS ORDERED: OZEMPIC 0.25 MG SQ SCH (08:00)
== END 2021-07-13 09:35 | disposition left against medical advice (07) | DRG 57 ==
LOC: 5TH 07-10 12:31
PROVIDERS: ADMIT Psychiatry & Neurology Neurology with Special Qualifications in Child Neurology; ATTEND Psychiatry & Neurology Neurology with Special Qualifications in Child Neurology
DX: I69.354 Hemiplegia and hemiparesis following cerebral infarction affecting left non-dominant side (principal); I10 Essential (primary) hypertension; E11.9 Type 2 diabetes mellitus without complications; Z53.29 Procedure and treatment not carried out because of patient's decision for other reasons
CPT/HCPCS: 36415; 80048; 81001; 82040; 82947; 83605; 83735; 84134; 84145; 85025; 87086; 87088; 97110; 97112; 97116; 97161; 97530; 97542; J1650; J1815; J8597

== ENCOUNTER 2024-03-20 18:46 | Emergency (ER) | payer OTHER ==
--- NOTE | 2024-03-20 20:00 | EDPHYS ---
Physician Documentation [facility] Name: Sharda Mckenzie Age: 48 yrs Sex: Female : 1975 Arrival Date: 03/20/2024 Time: 18:46 Bed IW10 Private MD: ED Physician ADOPTION COUNSELOR: 03/20 19:30 LMP 02/23/2024, unknown bm8 Historical: - Allergies: 19:30 No Known Allergies; bm8 - Home Meds: 19:30 Unable to obtain [Active]; bm8 - PMHx: 19:30 Congestive heart failure; Hypertensive disorder; Diabetes mellitus; bm8 - PSHx: 19:30 left side orbital fracture repair; bm8 - Immunization history:: Adult Immunizations up to date. - Infectious Disease History:: Denies. - Social history:: Smoking status: Patient denies any tobacco usage or history of. Patient/guardian denies using alcohol, street drugs. Vital Signs: 19:29 BP 161 / 103; Pulse 102; Resp 18; Temp 98.7; Pulse Ox 100% on R/A; Weight 129.27 kg; bm8 Height 5 ft. 6 in. ; Pain 0/10; 19:29 Body Mass Index 46.00 (129.27 kg, 167.64 cm) bm8 19:29 Pain Scale: Adult bm8 MDM: 19:45 Medical Screening Exam initiated sb4 03/20 19:54 Order name: EKG; Complete Time: 19:55 sb4 03/20 19:54 Order name: Cardiac monitoring sb4 03/20 19:54 Order name: EKG - Nurse/Tech; Complete Time: 22:02 sb4 03/20 19:54 Order name: IV Saline Lock sb4 03/20 19:54 Order name: Labs collected and sent sb4 03/20 19:54 Order name: O2 Per Protocol sb4 03/20 19:54 Order name: O2 Sat Monitoring sb4 EC:39 Rate is 100 beats/min. Rhythm is regular, Normal Sinus Rhythm. ND interval is normal at sb4 156 msec. QRS interval is normal at 80 msec. QT interval is normal at 370 msec. No Q waves. T waves are Normal. No ST changes noted. Clinical impression: No evidence of ischemia. Interpreted by me. Reviewed by me. Administered Medications: No medications were administered Disposition Summary: 03/20/24 19:59 Eloped Notes: Disposition: before being seen by provider vc1 Reason: wait time vc1 Signatures: Dispatcher [employer] Marilyn Dale RN RN vc1 Vanessa Pena, SHENA PAElla sb4 Beto Do RN RN bm8
--- NOTE | 2024-03-20 20:00 | ER ---
Nurse's Notes [facility] Name: Sharda Mckenzie Age: 48 yrs Sex: Female : 1975 Arrival Date: 03/20/2024 Time: 18:46 Bed IW10 Private MD: Diagnosis: Presentation: 03/20 19:29 Chief complaint: Patient states: i cant breathe. Coronavirus screen: Vaccine status: bm8 Patient reports receiving the 2nd dose of the covid vaccine. Ebola Screen: Patient negative for fever greater than or equal to 101.5 degrees Fahrenheit, and additional compatible Ebola Virus Disease symptoms Patient denies exposure to infectious person. Patient denies travel to an Ebola-affected area in the 21 days before illness onset. No symptoms or risks identified at this time. Initial Sepsis Screen: Does the patient meet any 2 criteria? No. Patient's initial sepsis screen is negative. Does the patient have a suspected source of infection? No. Patient's initial sepsis screen is negative. Risk Assessment: Do you want to hurt yourself or someone else? Patient reports no desire to harm self or others. Onset of symptoms was March 17, 2024. 19:29 Method Of Arrival: Ambulatory [facility] 19:29 Acuity: MAGALY 3 bm8 Triage Assessment: 19:30 General: Appears in no apparent distress. comfortable, Behavior is calm, cooperative, bm8 appropriate for age. Pain: Denies pain. EENT: No deficits noted. No signs and/or symptoms were reported regarding the EENT system. Neuro: No deficits noted. Level of Consciousness is awake, alert, obeys commands, Oriented to person, place, time, situation, Appropriate for age. Cardiovascular: No deficits noted. Heart tones S1 S2 present Capillary refill < 3 seconds in bilateral fingers Patient's skin is warm and dry. Respiratory: Reports shortness of breath at rest Airway is patent Breath sounds are clear bilaterally. Onset: The symptoms/episode began/occurred x3 days, the patient has mild shortness of breath. GI: Reports indigestion. : No deficits noted. No signs and/or symptoms were reported regarding the genitourinary system. Derm: No deficits noted. No signs and/or symptoms reported regarding the dermatologic system. Musculoskeletal: No deficits noted. No signs and/or symptoms reported regarding the musculoskeletal system. 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 - Infectious Disease History:: Denies. - Social history:: Smoking status: Patient denies any tobacco usage or history of. Patient/guardian denies using alcohol, street drugs. Screenin:57 [facility] ED Fall Risk Assessment (Adult) History of falling in the last 3 months, bm8 including since admission No falls in past 3 months (0 pts) Confusion or Disorientation No (0 pts) Intoxicated or Sedated No (0 pts) Impaired Gait No (0 pts) Mobility Assist Device Used No (0 pt) Altered Elimination No (0 pt) Score/Fall Risk Level 0 - 2 = Low Risk Oriented to surroundings, Maintained a safe environment, Educated pt \T\ family on fall prevention, incl call for assistance when getting out of bed, Assessed \T\ reinforced patient's understanding of fall precautions, Hourly rounding (assess needs \T\ fall precautionary measures) done, Used ambulatory aids as needed (educated on \T\ assisted with), Used gait belt as appropriate. Abuse screen: Denies threats or abuse. Nutritional screening: No deficits noted. Tuberculosis screening: No symptoms or risk factors identified. Assessment: 22:00 Reassessment: pt eloped at 1957, letting registration know she was leaving. bm8 Vital Signs: 19:29 BP 161 / 103; Pulse 102; Resp 18; Temp 98.7; Pulse Ox 100% on R/A; Weight 129.27 kg; bm8 Height 5 ft. 6 in. ; Pain 0/10; 19:29 Body Mass Index 46.00 (129.27 kg, 167.64 cm) bm8 19:29 Pain Scale: Adult bm8 ED Course: 18:49 Patient arrived in ED. mr 19:06 [facility] sb[facility] 19:06 Ramon Patrick MD is Attending Physician. sb4 19:30 Triage completed. bm8 19:30 Arm band placed on left wrist. bm8 19:30 EKG done, by ED staff, reviewed by Vanessa Pena PA-C. Inserted Patient did not have IV bm8 access during this emergency room visit. 19:57 Patient has correct armband on for positive identification. Provided Education on: none bm8 provided. 19:57 No provider procedures requiring assistance completed. bm8 Administered Medications: No medications were administered Medication: 19:57 VIS not applicable for this client. bm8 Outcome: :57 Eloped from waiting room, after seeing physician bmQuentin 19:57 Condition: stable 19:57 Discharge instructions given to none given pt eloped Instructed on none given pt eloped 20:00 Patient left the ED. vc1 Signatures: Jana Almodovar, Reg Reg mr Marilyn Solorzano, RN RN vc1 Vanessa Pena PA-C PA-C sb4 Beto Do, RN RN bm8
[2024-03-20 20:04] VITALS: BP 161/103; TEMP 98.7; O2SAT 100
--- NOTE | 2024-03-21 08:51 | EKG ---
Test Date: 2024-03-20 Test Time: 19:36:46 [employer] Attorney: JOSE MEASUREMENT RESULTS: Intervals: Rate: 100 IA: 156 QRSD: 80 QT: 370 QTc: 477 [place]: P: 69 IA: 156 QRS: -8 T: 24 INTERPRETIVE STATEMENTS: Normal sinus rhythm Low voltage QRS Borderline ECG No previous ECG available for comparison Electronically Signed On 03-21-24 08:49:50 RESIDENTIAL MANAGER by Brenton Ambrose
== END 2024-03-20 20:00 | disposition left against medical advice (07) ==
LOC: ER 18:46
DX: Z53.21 Procedure and treatment not carried out due to patient leaving prior to being seen by health care provider (principal)
CPT/HCPCS: 93005; 99283